=== PATIENT | male | born 1955 | race Caucasian/White ===

== ENCOUNTER 2017-10-18 15:03 | Inpatient (IN) ==
[2017-10-18] MEDS ORDERED: Dextrose 50% in Water 50 ML Vial IV.PUSH PRN (15:29)
[2017-10-18] MEDS ORDERED: Vancomycin Consult Pharmacy OTHER PRN ×2 (15:32→21:07)
--- NOTE | 2017-10-18 15:45 | P.HPIM ---
History of Present Illness Primary Care Physician: UNKNOWN Chief Complaint: Left hallux infection History of Present Illness: Mr. Schaffer is a 62 y/o male with diabetes mellitus, paroxysmal atrial fibrillation, cardiomyopathy sp AICD, and hx of colon cancer who recently underwent ostectomy/partial phalangectomy of the left hallux on 09/26/[address] Dunlap for recurring ulceration that appeared to have the appearance of a plantar wart. Pt was sent back to the hospital by Dr. Dunlap for direct admission for post-op infection of the left hallux and concern for possible osteomyelitis. Past Medical Hx: Recurring ulceration to the left hallux Paroxysmal A. fib CAD with hx of [place] Hx of colon cancer s/p partial colectomy Cardiomyopathy, EF 40% s/p AICD Hyperlipidemia Diabetes mellitus, Hgb A1C 6.9% in 02/2017 Diabetic neuropathy Obesity PAD RLS Past Surgical Hx: Ostectomy/partial phalangectomy of left hallux on 09/26/[address] Dunlap Right hemicolectomy Colonoscopy in 11/[address] Owens Appendectomy AICD Nasal septal deviation repair PTCA with previous stent placement. Family Hx: Family hx of colon cancer Sister at age 47 after Acute [place] Social Hx: Rare alcohol use Denies any tobacco or illicit drug use Inpatient Certification: I certify that the inpatient services were ordered in accordance with Medicare regulations governing the order. This includes certification that hospital inpatient services are reasonable and necessary and in the case of services not specified as inpatient-only under 42 CFR 419.22(n), that they are appropriately provided as inpatient services in accordance to with the 2-midnight benchmark under 43 CFR 412.3(e) Medications and Allergies Active Medications: Active Medications Acetaminophen (Tylenol) 650 mg PO Q4H PRN PRN Reason: fever or pain 1-10 Dextrose (D50w Vial) 50 ml IV.PUSH UNSCH PRN PRN Reason: PER HYPOGLYCEMIA PROTOCOL Glucagon (Glucagon Inj) 1 mg OTHER PRN PRN PRN Reason: for Hypoglycemia Protocol Insulin Aspart (Novolog Insulin Correctional Sugar Inj) 0 unit SQ ACHS [facility]; Protocol Ondansetron HCl (Zofran Odt) 4 mg PO Q4H PRN PRN Reason: n/v Pharmacy Profile Note (Vancomycin Consult Pharmacy) 1 each OTHER UNSCH PRN PRN Reason: Pharmacy to dose Allergies Allergy/AdvReac Type Severity Reaction Status Date / Time No Known Allergies Allergy Uncoded 04/18/15 15:42 Home Medications Medication Instructions Recorded Confirmed Type amiodarone 200 mg PO DAILY 10/18/17 10/18/17 History aspirin 81 mg PO DAILY 10/18/17 10/18/17 History atorvastatin 40 mg PO HS 10/18/17 10/18/17 History carvedilol [Coreg] 12.5 mg PO BID 10/18/17 10/18/17 History cholecalciferol (vitamin D3) 5,000 unit PO BID 10/18/17 10/18/17 History [Vitamin D3] dabigatran etexilate [Pradaxa] 150 mg PO BID 10/18/17 10/18/17 History empagliflozin [Jardiance] 10 mg PO DAILY 10/18/17 10/18/17 History furosemide [Lasix] 20 mg PO DAILY 10/18/17 10/18/17 History glipizide 5 mg PO BID 10/18/17 10/18/17 History insulin detemir U-100 [Levemir 60 unit SUB-Q BID 10/18/17 10/18/17 History FlexTouch U-100 Insuln] lisinopril 40 mg PO DAILY 10/18/17 10/18/17 History magnesium oxide 500 mg PO BID 10/18/17 10/18/17 History metformin 1,000 mg PO BID 10/18/17 10/18/17 History nitroglycerin [Nitrostat] 0.4 mg SUBLINGUAL Q5-15M PRN 10/18/17 10/18/17 History ranitidine HCl 150 mg PO BID 10/18/17 10/18/17 History ropinirole 4 mg PO HS 10/18/17 10/18/17 History trazodone 100 mg PO HS 10/18/17 10/18/17 History venlafaxine 150 mg PO DAILY 10/18/17 10/18/17 History Exam Narrative: GENERAL: NAD< AAOx3 SKIN: Warm and dry. HEENT: Atraumatic. Normocephalic. Pupils equal and round. No scleral icterus. No injection or drainage. No nasal bleeding or discharge. Mucous membranes pink and moist. NECK: Trachea midline. No JVD. CARDIO: Regular rate and rhythm. RESP: No accessory muscle use. Clear to auscultation. Breath sounds equal bilaterally. ABD: +BS, soft, non-tender, nondistended. EXT: Extremities without clubbing, cyanosis, or edema. No obvious deformities. NEURO: Awake and alert. No obvious cranial nerve deficits. Motor grossly within normal limits. Five out of 5 muscle strength in the arms and legs. Normal speech. PSYCH: Appropriate mood and affect; insight and judgment normal. Caprini VTE Risk Assessment Caprini Risk Assessment Model: Point Value = 1 Point Value = 2 Point Value = 3 Point Value = 5 Age 41-60 Minor surgery BMI > 25 kg/m2 Swollen legs Varicose veins or History of unexplained or recurrent spontaneous Oral contraceptives or hormone replacement Sepsis (< 1 month) Serious lung disease, including pneumonia (< 1 month) Abnormal pulmonary function Acute myocardial infarction Congestive heart failure (< 1 month) History of inflammatory bowel disease Medical patient at bed rest Age 61-74 Arthroscopic surgery Major open surgery (> 45 min) Laparoscopic surgery (> 45 min) Malignancy Confined to bed (> 72 hours) Immobilizing plaster cast Central venous access Age >= 75 History of VTE Family history of VTE Factor V Leiden Prothrombin [id number] Lupus anticoagulant Anticardiolipin antibodies Elevated serum homocysteine Heparin-induced thrombocytopenia Other congenital or acquired thrombophilia Stroke (< 1 month) Elective arthroplasty Hip, pelvis, or leg fracture Acute spinal cord injury (< 1 month) Prophylaxis Regimen: Total Risk Factor Score Risk Level Prophylaxis Regimen 0-1 Low Early ambulation 2 Moderate Order ONE of the following: *Sequential Compression Device (SCD) *Heparin 5000 units SQ BID 3-4 Higher Order ONE of the following medications: *Heparin 5000 units SQ TID *Enoxaparin/Lovenox 40 mg SQ daily (WT < 150 kg, CrCl > 30 mL/min) *Enoxaparin/Lovenox 30 mg SQ daily (WT < 150 kg, CrCl > 10-29 mL/min) *Enoxaparin/Lovenox 30 mg SQ BID (WT < 150 kg, CrCl > 30 mL/min) AND/OR *Sequential Compression Device (SCD) 5 or more Highest Order ONE of the following medications: *Heparin 5000 units SQ TID (Preferred with Epidurals) *Enoxaparin/Lovenox 40 mg SQ daily (WT < 150 kg, CrCl > 30 mL/min) *Enoxaparin/Lovenox 30 mg SQ daily (WT < 150 kg, CrCl > 10-29 mL/min) *Enoxaparin/Lovenox 30 mg SQ BID (WT < 150 kg, CrCl > 30 mL/min) AND *Sequential Compression Device (SCD)
--- NOTE | 2017-10-18 18:31 | P.CONPOD ---
History of Present Illness Service: Podiatry Consult date: 10/18/17 Reason for Consult: Left hallux infection Primary Care Provider: UNKNOWN Family Provider: Main Knowles MD Chief Complaint: Left hallux infection History of Present Illness: Patient is diabetic and has long history of nonhealing ulcers with consistent noncompliance. Underwent excision of wound to the area that came back as positive verruca, and bone biopsy of underlying bone that was negative for osteomyelitis. He has since been bearing weight when instructed not to, applying bandaging sometimes, but not always, and has had increasing redness and drainage to the area. Most concerning, is that he has severe peripheral neuropathy and has also been complaining of increasing pain. He was told to go to hospital for evaluation and concern for infection and possible osteomyelitis due to worsening symptoms. Review of Systems All other systems reviewed negative except as stated in HPI PMFSH - History History Provided By: Patient - Tobacco History Second Hand Smoke Exposure: No Smoking Status: Never smoker - Alcohol History How Often Do You Have a Drink Containing Alcohol: Monthly or less - Substance Use History Substance History: No History of Abuse Medications and Allergies Active Medications: Active Medications Acetaminophen (Tylenol) 650 mg PO Q4H PRN PRN Reason: fever or pain 1-10 Amiodarone HCl (Cordarone) 200 mg PO DAILY [facility] Aspirin (Aspirin Chew) 81 mg PO DAILY [facility] Atorvastatin Calcium (Lipitor) 40 mg PO HS [facility] Carvedilol (Coreg) 12.5 mg PO BID [facility] Dextrose (D50w Vial) 50 ml IV.PUSH UNSCH PRN PRN Reason: PER HYPOGLYCEMIA PROTOCOL Furosemide (Lasix) 20 mg PO DAILY [facility] Glucagon (Glucagon Inj) 1 mg OTHER PRN PRN PRN Reason: for Hypoglycemia Protocol Insulin Aspart (Novolog Insulin Correctional Sugar Inj) 0 unit SQ ACHS [facility]; Protocol Insulin Detemir (Levemir Inj) 30 unit SQ BID [facility] Lisinopril (Prinivil) 40 mg PO DAILY [facility] Non-Formulary Medication (Ranitidine Hcl [Ranitidine Hcl]) 150 mg PO BID [facility] Ondansetron HCl (Zofran Odt) 4 mg PO Q4H PRN PRN Reason: NAUSEA/VOMITING Pharmacy Profile Note (Vancomycin Consult Pharmacy) 1 each OTHER UNSCH PRN PRN Reason: Pharmacy to dose Ropinirole HCl (Requip) 4 mg PO DAILY@1800 [facility] Trazodone HCl (Desyrel) 100 mg PO HS [facility] Venlafaxine HCl (Effexor Xr) 150 mg PO DAILY [facility] Vitamin D (Vitamin D3) 5,000 unit PO BID [facility] Allergies Allergy/AdvReac Type Severity Reaction Status Date / Time No Known Allergies Allergy Uncoded 04/18/15 15:42 Home Medications Medication Instructions Recorded Confirmed Type amiodarone 200 mg PO DAILY 10/18/17 10/18/17 History aspirin 81 mg PO DAILY 10/18/17 10/18/17 History atorvastatin 40 mg PO HS 10/18/17 10/18/17 History carvedilol [Coreg] 12.5 mg PO BID 10/18/17 10/18/17 History cholecalciferol (vitamin D3) 5,000 unit PO BID 10/18/17 10/18/17 History [Vitamin D3] dabigatran etexilate [Pradaxa] 150 mg PO BID 10/18/17 10/18/17 History empagliflozin [Jardiance] 10 mg PO DAILY 10/18/17 10/18/17 History furosemide [Lasix] 20 mg PO DAILY 10/18/17 10/18/17 History glipizide 5 mg PO BID 10/18/17 10/18/17 History insulin detemir U-100 [Levemir 60 unit SUB-Q BID 10/18/17 10/18/17 History FlexTouch U-100 Insuln] lisinopril 40 mg PO DAILY 10/18/17 10/18/17 History magnesium oxide 500 mg PO BID 10/18/17 10/18/17 History metformin 1,000 mg PO BID 10/18/17 10/18/17 History nitroglycerin [Nitrostat] 0.4 mg SUBLINGUAL Q5-15M PRN 10/18/17 10/18/17 History ranitidine HCl 150 mg PO BID 10/18/17 10/18/17 History ropinirole 4 mg PO HS 10/18/17 10/18/17 History trazodone 100 mg PO HS 10/18/17 10/18/17 History venlafaxine 150 mg PO DAILY 10/18/17 10/18/17 History Physical Exam Vital signs: Vital Signs 10/18/17 18:20 Temperature 97.5 F L Pulse Rate 69 Respiratory Rate 18 Blood Pressure 134/73 Pulse Oximetry 96 Intake & Output 10/17/17 10/18/17 10/18/17 18:59 06:59 18:59 Weight 135.8 kg Other: Date of Last Bowel Movement 10/18/17 Weight On Admission 135.8 kg Narrative: Left plantar hallux interphalangeal joint area with sutures present and macerated tissue. Ulceration present with erythema and edema to hallux. Light touch sensation absent. Pulses palpable. Results - Labs CBC & Chem 7: 10/18/17 18:15 10/18/17 18:15 Assessment and Plan - Assessment (1) Cellulitis of left foot Code(s): L03.116 - Cellulitis of left lower limb Status: Acute Plan: Continue IV antibiotics Await Ceretec scan and lab results to determine if any further surgery required. Will need discharge on IV antibiotics long-term to assist with treatment plan
[2017-10-18 18:40] LABS: Hematocrit 41.1 % (39.0-51.0); Hemoglobin 13.8 gm/dL (13.0-17.0); Mean Corpuscular HGB Conc 33.6 % (32.0-36.0); Mean Corpuscular Hemoglobin 27.8 pg (27.0-34.0); Mean Corpuscular Volume 82.7 fL (80.0-100.0); Mean Platelet Volume 8.1 fL (7.0-11.0); Platelet Count 250 th/mm3 (150-450); Red Blood Count 4.97 mil/mm3 (4.50-5.90); Red Cell Distribution Width 14.8 % (11.6-17.2); White Blood Count 7.6 th/mm3 (4.0-11.0)
[2017-10-18] MEDS: Insulin NovoLOG Aspart Correctional Sugar Inj SQ SCH ×2 (18:55→22:05)
[2017-10-18 18:57] LABS: Carbon Dioxide 25.5 meq/L (21.0-32.0); Erythrocyte Sedimentation Rate 37 mm/hr (0-20); Potassium 4.1 meq/L (3.5-5.1)
[2017-10-18] MEDS: Carvedilol 12.5 MG Tablet PO SCH (20:31)
[2017-10-18] MEDS: Famotidine 20 MG Tablet PO SCH (20:31)
[2017-10-18] MEDS: Acetaminophen 325 MG Tablet PO PRN (20:32)
[2017-10-18] MEDS ORDERED: Vancomycin Inj 1,000 MG in Sodium Chlor 0.9% Inj 250 ML IV.SIG ONE (21:07)
--- NOTE | 2017-10-18 21:10 | P.HPIM ---
History of Present Illness Primary Care Physician: UNKNOWN Chief Complaint: Left hallux infection History of Present Illness: Mr. Schaffer is a 62 y/o male with diabetes mellitus, paroxysmal atrial fibrillation, cardiomyopathy sp AICD, and hx of colon cancer who recently underwent ostectomy/partial phalangectomy of the left hallux on 09/26/[address] Dunlap for recurring ulceration that appeared to have the appearance of a plantar wart. Pt was sent back to the hospital by Dr. Dunlap for direct admission for post-op infection of the left hallux and concern for possible osteomyelitis. Past Medical Hx: Recurring ulceration to the left hallux Paroxysmal A. fib CAD with hx of [place] Hx of colon cancer s/p partial colectomy Cardiomyopathy, EF 40% s/p AICD Hyperlipidemia Diabetes mellitus, Hgb A1C 6.9% in 02/2017 Diabetic neuropathy Obesity PAD RLS Past Surgical Hx: Ostectomy/partial phalangectomy of left hallux on 09/26/[address] Dunlap Right hemicolectomy Colonoscopy in 11/[address] Owens Appendectomy AICD Nasal septal deviation repair PTCA with previous stent placement. Family Hx: Family hx of colon cancer Sister at age 47 after Acute [place] Social Hx: Rare alcohol use Denies any tobacco or illicit drug use - Diagnosis (1) Cellulitis of left foot Inpatient Certification: I certify that the inpatient services were ordered in accordance with Medicare regulations governing the order. This includes certification that hospital inpatient services are reasonable and necessary and in the case of services not specified as inpatient-only under 42 CFR 419.22(n), that they are appropriately provided as inpatient services in accordance to with the 2-midnight benchmark under 43 CFR 412.3(e) Estimated Total Length of Stay (Days): 5 Plans for Post Hospital Care: Home [facility] - History History Provided By: Patient - Tobacco History Second Hand Smoke Exposure: No Smoking Status: Never smoker - Alcohol History How Often Do You Have a Drink Containing Alcohol: Monthly or less - Substance Use History Substance History: No History of Abuse Medications and Allergies Active Medications: Active Medications Acetaminophen (Tylenol) 650 mg PO Q4H PRN PRN Reason: fever or pain 1-10 Last Admin: 10/18/17 20:32 Dose: 650 mg Amiodarone HCl (Cordarone) 200 mg PO DAILY [facility] Aspirin (Aspirin Chew) 81 mg PO DAILY [facility] Atorvastatin Calcium (Lipitor) 40 mg PO HS [facility] Last Admin: 10/18/17 20:32 Dose: 40 mg Carvedilol (Coreg) 12.5 mg PO BID [facility] Last Admin: 10/18/17 20:31 Dose: 12.5 mg Dextrose (D50w Vial) 50 ml IV.PUSH UNSCH PRN PRN Reason: PER HYPOGLYCEMIA PROTOCOL Famotidine (Pepcid) 20 mg PO BID [facility] Last Admin: 10/18/17 20:31 Dose: 20 mg Furosemide (Lasix) 20 mg PO DAILY [facility] Glucagon (Glucagon Inj) 1 mg OTHER PRN PRN PRN Reason: for Hypoglycemia Protocol Vancomycin HCl 1,000 mg/ (Sodium Chloride) 250 mls @ 250 mls/hr IV.SIG ONCE ONE Stop: 10/18/17 22:06 Insulin Aspart (Novolog Insulin Correctional Sugar Inj) 0 unit SQ ACHS [facility]; Protocol Last Admin: 10/18/17 18:55 Dose: 2 unit Insulin Detemir (Levemir Inj) 30 unit SQ BID [facility] Lisinopril (Prinivil) 40 mg PO DAILY [facility] Ondansetron HCl (Zofran Odt) 4 mg PO Q4H PRN PRN Reason: NAUSEA/VOMITING Pharmacy Profile Note (Vancomycin Consult Pharmacy) 1 each OTHER UNSCH PRN PRN Reason: Pharmacy to dose Pharmacy Profile Note (Vancomycin Consult Pharmacy) 1 each OTHER UNSCH PRN PRN Reason: Pharmacy to dose Ropinirole HCl (Requip) 4 mg PO DAILY@1800 [facility] Last Admin: 10/18/17 19:15 Dose: 4 mg Trazodone HCl (Desyrel) 100 mg PO [facility] Venlafaxine HCl (Effexor Xr) 150 mg PO DAILY [facility] Vitamin D (Vitamin D3) 5,000 unit PO BID [facility] Last Admin: 10/18/17 20:31 Dose: 5,000 unit Allergies Allergy/AdvReac Type Severity Reaction Status Date / Time No Known Allergies Allergy Uncoded 04/18/15 15:42 Home Medications Medication Instructions Recorded Confirmed Type amiodarone 200 mg PO DAILY 10/18/17 10/18/17 History aspirin 81 mg PO DAILY 10/18/17 10/18/17 History atorvastatin 40 mg PO HS 10/18/17 10/18/17 History carvedilol [Coreg] 12.5 mg PO BID 10/18/17 10/18/17 History cholecalciferol (vitamin D3) 5,000 unit PO BID 10/18/17 10/18/17 History [Vitamin D3] dabigatran etexilate [Pradaxa] 150 mg PO BID 10/18/17 10/18/17 History empagliflozin [Jardiance] 10 mg PO DAILY 10/18/17 10/18/17 History furosemide [Lasix] 20 mg PO DAILY 10/18/17 10/18/17 History glipizide 5 mg PO BID 10/18/17 10/18/17 History insulin detemir U-100 [Levemir 60 unit SUB-Q BID 10/18/17 10/18/17 History FlexTouch U-100 Insuln] lisinopril 40 mg PO DAILY 10/18/17 10/18/17 History magnesium oxide 500 mg PO BID 10/18/17 10/18/17 History metformin 1,000 mg PO BID 10/18/17 10/18/17 History nitroglycerin [Nitrostat] 0.4 mg SUBLINGUAL Q5-15M PRN 10/18/17 10/18/17 History ranitidine HCl 150 mg PO BID 10/18/17 10/18/17 History ropinirole 4 mg PO HS 10/18/17 10/18/17 History trazodone 100 mg PO HS 10/18/17 10/18/17 History Exam Vital signs: Vital Signs 10/18/17 18:20 10/18/17 20:00 Temperature 97.5 F L 98.6 F Pulse Rate 69 67 Respiratory Rate 18 17 Blood Pressure 134/73 138/76 Pulse Oximetry 96 95 Intake & Output 10/18/17 10/18/17 10/19/17 06:59 18:59 06:59 Weight 135.8 kg Other: Date of Last Bowel Movement 10/18/17 Weight On Admission 135.8 kg heart reg lungc ta abd s/nt ext left great toe redness/open wound. no drainage Results - Labs CBC & Chem 7: 10/23/17 05:38 10/23/17 05:38 Labs: Short CBC 10/18/17 Range/Units 18:15 WBC 7.6 (4.0-11.0) th/mm3 Hgb 13.8 (13.0-17.0) gm/dL Hct 41.1 (39.0-51.0) % Plt Count 250 (150-450) th/mm3 BMP 10/18/17 18:15 Sodium 139 Potassium 4.1 Chloride 103 Carbon Dioxide 25.5 BUN 13 Creatinine 1.14 Calcium 9.0 Caprini VTE Risk Assessment Caprini VTE Risk Assessment: Moderate/High Risk (score >= 2) Caprini Risk Assessment Model: Point Value = 1 Point Value = 2 Point Value = 3 Point Value = 5 Age 41-60 Minor surgery BMI > 25 kg/m2 Swollen legs Varicose veins or History of unexplained or recurrent spontaneous Oral contraceptives or hormone replacement Sepsis (< 1 month) Serious lung disease, including pneumonia (< 1 month) Abnormal pulmonary function Acute myocardial infarction Congestive heart failure (< 1 month) History of inflammatory bowel disease Medical patient at bed rest Age 61-74 Arthroscopic surgery Major open surgery (> 45 min) Laparoscopic surgery (> 45 min) Malignancy Confined to bed (> 72 hours) Immobilizing plaster cast Central venous access Age >= 75 History of VTE Family history of VTE Factor V Leiden Prothrombin [id number] Lupus anticoagulant Anticardiolipin antibodies Elevated serum homocysteine Heparin-induced thrombocytopenia Other congenital or acquired thrombophilia Stroke (< 1 month) Elective arthroplasty Hip, pelvis, or leg fracture Acute spinal cord injury (< 1 month) Prophylaxis Regimen: Total Risk Factor Score Risk Level Prophylaxis Regimen 0-1 Low Early ambulation 2 Moderate Order ONE of the following: *Sequential Compression Device (SCD) *Heparin 5000 units SQ BID 3-4 Higher Order ONE of the following medications: *Heparin 5000 units SQ TID *Enoxaparin/Lovenox 40 mg SQ daily (WT < 150 kg, CrCl > 30 mL/min) *Enoxaparin/Lovenox 30 mg SQ daily (WT < 150 kg, CrCl > 10-29 mL/min) *Enoxaparin/Lovenox 30 mg SQ BID (WT < 150 kg, CrCl > 30 mL/min) AND/OR *Sequential Compression Device (SCD) 5 or more Highest Order ONE of the following medications: *Heparin 5000 units SQ TID (Preferred with Epidurals) *Enoxaparin/Lovenox 40 mg SQ daily (WT < 150 kg, CrCl > 30 mL/min) *Enoxaparin/Lovenox 30 mg SQ daily (WT < 150 kg, CrCl > 10-29 mL/min) *Enoxaparin/Lovenox 30 mg SQ BID (WT < 150 kg, CrCl > 30 mL/min) AND *Sequential Compression Device (SCD) Assessment and Plan - Assessment (1) Cellulitis of left foot Code(s): L03.116 - Cellulitis of left lower limb Status: Acute Plan: Left hallux cellulitis s/p ostectomy/partial phalangectomy of the left hallux on 09/26/17 - Pt is a 62 y/o male with diabetes mellitus, paroxysmal atrial fibrillation, cardiomyopathy sp AICD, and hx of colon cancer who recently underwent ostectomy/ partial phalangectomy of the left hallux on 09/26/[address] Dunlap for recurring ulceration that appeared to have the appearance of a plantar wart. Previous surgical cx's noted from September, growing GBS and MSSA - Pt was sent back to the hospital by Dr. Dunlap for direct admission for post -op infection of the left hallux and concern for possible osteomyelitis. The pt had reportedly been noncompliant with non-weight bearing status - Cont. Vancomycin with pharmacy consult at admission - Dr. Dunlap is following. - ceretec scan to evaluate for osteo - further wound cultures per podiatry. Diabetes mellitus - Home [facility] on hold - Levemir dose decreased to 30units BID - NovoLog SSI - Accu checks Paroxysmal A. fib Cardiomyopathy s/p AICD - Home meds resumed including Pradaxa . H&P: Quality - VTE Deep Vein Thrombosis/Pulmonary Embolism Present on Admission: No
[2017-10-18] MEDS: Insulin Detemir Inj 1,000 UNIT/10 ML Vial SQ SCH (22:05)
[2017-10-18] MEDS: traZODone 100 MG Tablet PO SCH (22:06)
--- NOTE | 2017-10-18 22:28 | XR ---
EXAM DATE: 10/18/2017 10:23 PM EDT AGE/SEX: 62 years / Male INDICATIONS: Possible hallux infection. Surgery on September 26. CLINICAL DATA: This is the patient's initial encounter. Patient reports that signs and symptoms have been present for 3 weeks and indicates a pain score of 3/10. MEDICAL/SURGICAL HISTORY: . Myocardial infarction. Diabetes mellitus type 2. Hypertension. . Pacemaker. Angioplasty. Large bowel resection. Left great toe. COMPARISON: No prior exams available for comparison. FINDINGS: There is soft tissue swelling involving the left great toe. There is a possible avulsion fracture or soft tissue calcification adjacent to the medial base of the left first distal phalanx. Moderate oste oarthritis is noted involving the first metatarsophalangeal and interphalangeal joints. Plantar and A chilles calcaneal spurs are noted. CONCLUSION: 1. Possible avulsion fracture or soft tissue calcification adjacent to the medial base of the left f irst distal phalanx. 2. Soft tissue swelling involving the left great toe. 3. 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 4. Plantar and Achilles calcaneus spurs. Electronically signed by: Wil Jones MD 10/18/2017 10:27 PM EDT
[2017-10-18] MEDS: Vancomycin Inj 1,750 MG in Sodium Chlor 0.9% Inj 500 ML IV.SIG SCH (22:31)
[2017-10-19] MEDS: Insulin NovoLOG Aspart Correctional Sugar Inj SQ SCH ×4 (08:37→20:50)
[2017-10-19] MEDS: Carvedilol 12.5 MG Tablet PO SCH ×2 (08:38→20:53)
[2017-10-19] MEDS: Famotidine 20 MG Tablet PO SCH ×2 (08:38→20:48)
[2017-10-19] MEDS: Furosemide 20 MG Tablet PO SCH (08:38)
[2017-10-19] MEDS: Amiodarone 200 MG Tablet PO SCH (08:38)
[2017-10-19] MEDS: Venlafaxine XR 75 MG Capsule PO SCH (08:38)
[2017-10-19] MEDS: Lisinopril 20 MG Tablet PO SCH (08:38)
[2017-10-19] MEDS: Insulin Detemir Inj 1,000 UNIT/10 ML Vial SQ SCH ×2 (09:07→20:50)
[2017-10-19] MEDS: Vancomycin Inj 1,750 MG in Sodium Chlor 0.9% Inj 500 ML IV.SIG SCH ×2 (09:39→23:04)
--- NOTE | 2017-10-19 09:47 | P.PNIM ---
Subjective Interval history: No new complaints this morning Afebrile No complaints of pain Physical Exam Vital signs: Vital Signs 10/18/17 18:20 10/18/17 20:00 10/18/17 23:46 Temperature 97.5 F L 98.6 F 98.4 F Pulse Rate 69 67 62 Respiratory Rate 18 17 17 Blood Pressure 134/73 138/76 116/62 Pulse Oximetry 96 95 93 L 10/19/17 04:00 10/19/17 08:00 Temperature 98.2 F 97.6 F Pulse Rate 62 61 Respiratory Rate 17 12 Blood Pressure 130/78 147/81 H Pulse Oximetry 93 L 90 L Intake & Output 10/18/17 10/19/17 10/19/17 18:59 06:59 18:59 Intake Total 1517.5 / 1517.5 Balance 1517.5 / 1517.5 Weight 135.8 kg Intake: IV 517.5 / 517.5 Vancomycin Inj 1,750 MG In NS 517.5 / 517.5 Inj 500 ML @ 250 mls/hr IV.SIG Q12H [facility] Rx#:[id number] Oral 1000 / 1000 Other: # Voids 3 Date of Last Bowel Movement 10/18/17 10/18/17 Weight On Admission 135.8 kg Narrative: General: NAD, AAOx3 Chest: CTA Cardiac: Regular Abd: +BS, soft ND/NT Ext: Left hallux interphalangeal joint area with sutures present. Ulceration present with erythema and edema to hallux. No drainage. Results - Labs CBC & Chem 7: 10/18/17 18:15 10/18/17 18:15 Laboratory Results - last 24 hr 10/18/17 10/18/17 10/18/17 18:15 18:15 18:33 WBC 7.6 RBC 4.97 Hgb 13.8 Hct 41.1 MCV 82.7 MCH 27.8 MCHC 33.6 RDW 14.8 Plt Count 250 MPV 8.1 ESR 37 H Sodium 139 Potassium 4.1 Chloride 103 Carbon Dioxide 25.5 Anion Gap 11 BUN 13 Creatinine 1.14 Estimated GFR 66 L POC Glucose 181 H Random Glucose 147 H Calcium 9.0 10/18/17 10/19/17 21:33 08:36 WBC RBC Hgb Hct MCV MCH MCHC RDW Plt Count MPV ESR Sodium Potassium Chloride Carbon Dioxide Anion Gap BUN Creatinine Estimated GFR POC Glucose 121 H 149 H Random Glucose Calcium - Imaging Impressions Foot X-Ray 10/18/17 00:00 CONCLUSION: 1. Possible avulsion fracture or soft tissue calcification adjacent to the medial base of the left first distal phalanx. 2. Soft tissue swelling involving the left great toe. 3. 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 4. Plantar and Achilles calcaneus spurs. Assessment and Plan - Assessment (1) Cellulitis of left foot Code(s): L03.116 - Cellulitis of left lower limb Status: Acute Plan: Left hallux cellulitis s/p ostectomy/partial phalangectomy of the left hallux on 09/26/17 - Pt is a 62 y/o male with diabetes mellitus, paroxysmal atrial fibrillation, cardiomyopathy sp AICD, and hx of colon cancer who recently underwent ostectomy/ partial phalangectomy of the left hallux on 09/26/[address] Dunlap for recurring ulceration that appeared to have the appearance of a plantar wart. - Pt was sent back to the hospital by Dr. Dunlap for direct admission for post -op infection of the left hallux and concern for possible osteomyelitis. The pt had reportedly been noncompliant with non-weight bearing status - pt was started on Vancomycin with pharmacy consult at admission - Dr. Dunlap is following. - Ceretex scan ordered for today - Supportive care Diabetes mellitus - Home OHA on hold - Levemir dose decreased to 30units BID - NovoLog SSI - Accu checks Paroxysmal A. fib Cardiomyopathy s/p AICD - Home meds resumed except Pradaxa on hold until case can be discussed with Podiatry today The exam, history, and the medical decision-making described in the above note were completed with the assistance of the mid-level provider. I reviewed and agree with the findings presented. I attest that I had a [id number] encounter with the patient on the same day, and personally performed and documented my assessment and findings in the medical record. ceretec scan. cont abx. podiatry following. will decide on surgery...plan for home iv abx. previous cx's noted from September..gbs and mssa.
--- NOTE | 2017-10-19 20:41 | P.PNPOD ---
Subjective Interval history: Infection left hallux, s/p exostectomy with biopsy of chronic lesion Physical Exam Vital signs: Vital Signs 10/18/17 23:46 10/19/17 04:00 10/19/17 08:00 Temperature 98.4 F 98.2 F 97.6 F Pulse Rate 62 62 61 Respiratory Rate 17 17 12 Blood Pressure 116/62 130/78 147/81 H Pulse Oximetry 93 L 93 L 90 L 10/19/17 13:35 10/19/17 17:28 10/19/17 19:45 Temperature 98.1 F 97.5 F L 98.5 F Pulse Rate 57 L 59 L 60 Respiratory Rate 17 19 20 Blood Pressure 133/81 155/84 H 143/78 H Pulse Oximetry 97 97 96 Intake & Output 10/19/17 10/19/17 10/20/17 06:59 18:59 06:59 Intake Total 1517.5 / 1517.5 1999 Balance 1517.5 / 1517.5 1999 Intake: IV 517.5 / 517.5 1000 / 1000 Vancomycin Inj 1,750 MG In NS 517.5 / 517.5 1000 / 1000 Inj 500 ML @ 250 mls/hr IV.SIG Q12H [facility] Rx#:[id number] Oral 1000 / 1000 1000 / 1000 Other: # Voids 3 Date of Last Bowel Movement 10/18/17 Medications and Allergies Active Medications: Active Medications Acetaminophen (Tylenol) 650 mg PO Q4H PRN PRN Reason: fever or pain 1-10 Last Admin: 10/18/17 20:32 Dose: 650 mg Amiodarone HCl (Cordarone) 200 mg PO DAILY [facility] Last Admin: 10/19/17 08:38 Dose: 200 mg Aspirin (Aspirin Chew) 81 mg PO DAILY [facility] Last Admin: 10/19/17 08:38 Dose: 81 mg Atorvastatin Calcium (Lipitor) 40 mg PO HS [facility] Last Admin: 10/18/17 20:32 Dose: 40 mg Carvedilol (Coreg) 12.5 mg PO BID [facility] Last Admin: 10/19/17 08:38 Dose: 12.5 mg Dabigatran (Pradaxa) 150 mg PO BID [facility] Last Admin: 10/19/17 14:28 Dose: 150 mg Dextrose (D50w Vial) 50 ml IV.PUSH UNSCH PRN PRN Reason: PER HYPOGLYCEMIA PROTOCOL Famotidine (Pepcid) 20 mg PO BID [facility] Last Admin: 10/19/17 08:38 Dose: 20 mg Furosemide (Lasix) 20 mg PO DAILY [facility] Last Admin: 10/19/17 08:38 Dose: 20 mg Glucagon (Glucagon Inj) 1 mg OTHER PRN PRN PRN Reason: for Hypoglycemia Protocol Vancomycin HCl 1,750 mg/ (Sodium Chloride) 517.5 mls @ 250 mls/hr IV.SIG Q12H [facility] Last Infusion: 10/19/17 12:55 Dose: Infused Insulin Aspart (Novolog Insulin Correctional Sugar Inj) 0 unit SQ ACHS [facility]; Protocol Last Admin: 10/19/17 18:10 Dose: 4 unit Insulin Detemir (Levemir Inj) 30 unit SQ BID [facility] Last Admin: 10/19/17 09:07 Dose: Not Given Lisinopril (Prinivil) 40 mg PO DAILY [facility] Last Admin: 10/19/17 08:38 Dose: 40 mg Miscellaneous Information ([facility] Ordered Lab Info) 0 each OTHER ONCE ONE Stop: 10/20/17 09:46 Ondansetron HCl (Zofran Odt) 4 mg PO Q4H PRN PRN Reason: NAUSEA/VOMITING Pharmacy Profile Note (Vancomycin Consult Pharmacy) 1 each OTHER UNSCH PRN PRN Reason: Pharmacy to dose Pharmacy Profile Note (Vancomycin Consult Pharmacy) 1 each OTHER UNSCH PRN PRN Reason: Pharmacy to dose Ropinirole HCl (Requip) 4 mg PO DAILY@1800 [facility] Last Admin: 10/19/17 17:34 Dose: 4 mg Trazodone HCl (Desyrel) 100 mg PO [facility] Last Admin: 10/18/17 22:06 Dose: 100 mg Venlafaxine HCl (Effexor Xr) 150 mg PO DAILY [facility] Last Admin: 10/19/17 08:38 Dose: 150 mg Vitamin D (Vitamin D3) 5,000 unit PO BID [facility] Last Admin: 10/19/17 09:39 Dose: 5,000 unit Allergies Allergy/AdvReac Type Severity Reaction Status Date / Time No Known Allergies Allergy Uncoded 04/18/15 15:42 Home Medications Medication Instructions Recorded Confirmed Type amiodarone 200 mg PO DAILY 10/18/17 10/18/17 History aspirin 81 mg PO DAILY 10/18/17 10/18/17 History atorvastatin 40 mg PO HS 10/18/17 10/18/17 History carvedilol [Coreg] 12.5 mg PO BID 10/18/17 10/18/17 History cholecalciferol (vitamin D3) 5,000 unit PO BID 10/18/17 10/18/17 History [Vitamin D3] dabigatran etexilate [Pradaxa] 150 mg PO BID 10/18/17 10/18/17 History empagliflozin [Jardiance] 10 mg PO DAILY 10/18/17 10/18/17 History furosemide [Lasix] 20 mg PO DAILY 10/18/17 10/18/17 History glipizide 5 mg PO BID 10/18/17 10/18/17 History insulin detemir U-100 [Levemir 60 unit SUB-Q BID 10/18/17 10/18/17 History FlexTouch U-100 Insuln] lisinopril 40 mg PO DAILY 10/18/17 10/18/17 History magnesium oxide 500 mg PO BID 10/18/17 10/18/17 History metformin 1,000 mg PO BID 10/18/17 10/18/17 History nitroglycerin [Nitrostat] 0.4 mg SUBLINGUAL Q5-15M PRN 10/18/17 10/18/17 History ranitidine HCl 150 mg PO BID 10/18/17 10/18/17 History ropinirole 4 mg PO HS 10/18/17 10/18/17 History trazodone 100 mg PO HS 10/18/17 10/18/17 History venlafaxine 150 mg PO DAILY 10/18/17 10/18/17 History Results - Labs CBC & Chem 7: 10/18/17 18:15 10/18/17 18:15 Laboratory Results - last 24 hr 10/18/17 10/19/17 10/19/17 21:33 08:36 13:25 POC Glucose 121 H 149 H 185 H 10/19/17 10/19/17 17:33 20:23 POC Glucose 205 H 185 H - Imaging Impressions Foot X-Ray 10/18/17 00:00 CONCLUSION: 1. Possible avulsion fracture or soft tissue calcification adjacent to the medial base of the left first distal phalanx. 2. Soft tissue swelling involving the left great toe. 3. 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 4. Plantar and Achilles calcaneus spurs. Assessment and Plan - Assessment (1) Cellulitis of left foot Code(s): L03.116 - Cellulitis of left lower limb Status: Acute Plan: Continue IV antibiotics Await Ceretec scan and lab results to determine if any further surgery required. Results should be in by mid-day tomorrow Will need discharge on IV antibiotics long-term to assist with treatment plan
[2017-10-19] MEDS: traZODone 100 MG Tablet PO SCH (20:48)
[2017-10-20] MEDS: Acetaminophen 325 MG Tablet PO PRN ×2 (00:43→21:04)
[2017-10-20 07:26] LABS: Baso # (Auto) 0.1 th/mm3 (0.0-0.2); Eos # (Auto) 1.3 th/mm3 (0.0-0.4); Eos % (Auto) 21.1 % (0.0-4.0); Hematocrit 39.4 % (39.0-51.0); Hemoglobin 13.1 gm/dL (13.0-17.0); Lymph # (Auto) 1.6 th/mm3 (1.0-4.8); Lymph % (Auto) 25.9 % (9.0-44.0); Mean Corpuscular HGB Conc 33.2 % (32.0-36.0); Mean Corpuscular Hemoglobin 27.6 pg (27.0-34.0); Mean Corpuscular Volume 83.3 fL (80.0-100.0); Mean Platelet Volume 8.4 fL (7.0-11.0); Mono # (Auto) 0.7 th/mm3 (0.0-0.9); Mono % (Auto) 11.9 % (0.0-8.0); Neut # (Auto) 2.5 th/mm3 (1.8-7.7); Neut % (Auto) 40.1 % (16.0-70.0); Platelet Count 212 th/mm3 (150-450); Red Blood Count 4.73 mil/mm3 (4.50-5.90); Red Cell Distribution Width 15.1 % (11.6-17.2); White Blood Count 6.2 th/mm3 (4.0-11.0)
[2017-10-20] MEDS: Insulin NovoLOG Aspart Correctional Sugar Inj SQ SCH ×4 (09:19→21:07)
[2017-10-20] MEDS: Lisinopril 20 MG Tablet PO SCH (09:20)
[2017-10-20] MEDS: Amiodarone 200 MG Tablet PO SCH (09:20)
[2017-10-20] MEDS: Furosemide 20 MG Tablet PO SCH (09:20)
[2017-10-20] MEDS: Venlafaxine XR 75 MG Capsule PO SCH (09:20)
[2017-10-20] MEDS: Carvedilol 12.5 MG Tablet PO SCH ×2 (09:20→21:05)
[2017-10-20] MEDS: Famotidine 20 MG Tablet PO SCH ×2 (09:20→21:05)
[2017-10-20] MEDS: Insulin Detemir Inj 1,000 UNIT/10 ML Vial SQ SCH ×2 (09:21→21:11)
[2017-10-20] MEDS ORDERED: Pharmacy Ordered Lab Info OTHER ONE (09:45)
--- NOTE | 2017-10-20 09:55 | P.PNIM ---
Subjective Interval history: Pt feeling well today, no new complaints Awaiting second portion of his Ceretex scan Physical Exam Vital signs: Vital Signs 10/19/17 13:35 10/19/17 17:28 10/19/17 19:45 Temperature 98.1 F 97.5 F L 98.5 F Pulse Rate 57 L 59 L 60 Respiratory Rate 17 19 20 Blood Pressure 133/81 155/84 H 143/78 H Pulse Oximetry 97 97 96 10/19/17 22:04 10/20/17 00:00 Temperature 97.6 F 97.9 F Pulse Rate 60 61 Respiratory Rate 20 20 Blood Pressure 162/79 H 120/68 Pulse Oximetry 96 94 L Intake & Output 10/19/17 10/20/17 10/20/17 18:59 06:59 18:59 Intake Total 1999 757.5 / 757.5 Balance 1999 757.5 / 757.5 Weight 135.8 kg Intake: IV 1000 / 1000 517.5 / 517.5 Vancomycin Inj 1,750 MG In NS 1000 / 1000 517.5 / 517.5 Inj 500 ML @ 250 mls/hr IV.SIG Q12H [facility] Rx#:[id number] Oral 1000 / 1000 240 / 240 Other: # Voids 2 Date of Last Bowel Movement 10/19/17 Narrative: General: NAD, AAOx3 Chest: CTA Cardiac: Regular Abd: +BS, soft ND/NT Ext: Left hallux interphalangeal joint area with sutures present. Ulceration present with erythema and edema to hallux. No drainage. Results - Labs CBC & Chem 7: 10/20/17 06:15 10/20/17 11:02 Laboratory Results - last 24 hr 10/19/17 10/19/17 10/19/17 13:25 17:33 20:23 WBC RBC Hgb Hct MCV MCH MCHC RDW Plt Count MPV Neut % (Auto) Lymph % (Auto) [place] % (Auto) Eos % (Auto) Baso % (Auto) Neut # (Auto) Lymph # (Auto) [place] # (Auto) Eos # (Auto) Baso # (Auto) WBC Differential Differential Comment POC Glucose 185 H 205 H 185 H 10/20/17 10/20/17 06:15 07:56 WBC 6.2 RBC 4.73 Hgb 13.1 Hct 39.4 MCV 83.3 MCH 27.6 MCHC 33.2 RDW 15.1 Plt Count 212 MPV 8.4 Neut % (Auto) 40.1 Lymph % (Auto) 25.9 [place] % (Auto) 11.9 H Eos % (Auto) 21.1 H Baso % (Auto) 1.0 Neut # (Auto) 2.5 Lymph # (Auto) 1.6 [place] # (Auto) 0.7 Eos # (Auto) 1.3 H Baso # (Auto) 0.1 WBC Differential . Differential Comment Auto diff final POC Glucose 165 H Assessment and Plan - Assessment (1) Cellulitis of left foot Code(s): L03.116 - Cellulitis of left lower limb Status: Acute Plan: Left hallux cellulitis s/p ostectomy/partial phalangectomy of the left hallux on 09/26/17 - Pt is a 62 y/o male with diabetes mellitus, paroxysmal atrial fibrillation, cardiomyopathy sp AICD, and hx of colon cancer who recently underwent ostectomy/ partial phalangectomy of the left hallux on 09/26/[address] Dunlap for recurring ulceration that appeared to have the appearance of a plantar wart. Previous surgical cx's noted from September, growing GBS and MSSA - Pt was sent back to the hospital by Dr. Dunlap for direct admission for post -op infection of the left hallux and concern for possible osteomyelitis. The pt had reportedly been noncompliant with non-weight bearing status - pt was started on Vancomycin with pharmacy consult at admission - Dr. Dunlap is following. - The second portion of the Ceretex scan to be completed today. Dr. Dunlap to review and decide about surgical intervention. - Supportive care Diabetes mellitus - Home OHA on hold - Levemir dose decreased to 30units BID - NovoLog SSI - Accu checks Paroxysmal A. fib Cardiomyopathy s/p AICD - Home meds resumed including Pradaxa The exam, history, and the medical decision-making described in the above note were completed with the assistance of the mid-level provider. I reviewed and agree with the findings presented. I attest that I had a [id number] encounter with the patient on the same day, and personally performed and documented my assessment and findings in the medical record. ceretec scan concerning for very small area of osteo of left great toe. await podiatry plan cont abx to cover for gbs and mssa which were recently cx'd. cont current meds.
--- NOTE | 2017-10-20 11:05 | NM ---
EXAM DATE: 10/20/2017 10:53 AM EDT AGE/SEX: 62 years / Male INDICATIONS: Left great toe osteomyelitis. CLINICAL DATA: This is the patient's subsequent encounter. Patient reports that signs and symptoms h ave been present for 3 weeks and indicates a pain score of 0/10. Location: , Laterality: MEDICAL/SURGICAL HISTORY: Carcinoma, colon. Diabetes mellitus type II. Leukemia. Pacemaker. O stectomy/partial phalangectomy of the left hallux on 09/26/17. COMPARISON: No prior exams available for comparison. DOSE: 21.2 mCi Tc99m Ceretec labeled white blood cells IV IMAGING TIMES: 30 min , 3 hrs , 24 hrs IMAGING: SPECT/CT imaging with fusion was performed. RADIATION DOSE: 5.53 CTDIvol(mGy) Multiple day study TECHNIQUE: Following the in vitro labeling of autologous white cells and reinjection, whole body sca n was performed at the specified times. SPECT imaging was performed at the specified time in sagittal , axial and coronal planes. Attenuation correction was performed with the computed tomography and ana lilia th the attenuation correction and non-attenuation corrected data sets were reviewed. FINDINGS: There does appear to be some increased Ceretec accumulation along the very medial margin of the first distal phalangeal bone on the left. No soft tissue ulcerations identified. There is no active ostial lysis. CONCLUSION: 1. The only questionable areas of Ceretec accumulation involves the very medial margin of the first distal phalangeal bone on the left. It only involves the edge of the bone and not the marrow. Electronically signed by: Main Pandey MD 10/20/2017 11:03 AM EDT
[2017-10-20] MEDS: Vancomycin Inj 1,750 MG in Sodium Chlor 0.9% Inj 500 ML IV.SIG SCH ×2 (11:19→21:04)
[2017-10-20 11:52] LABS: Calcium 8.7 mg/dL (8.5-10.1); Carbon Dioxide 28.9 meq/L (21.0-32.0); Potassium 4.2 meq/L (3.5-5.1)
[2017-10-20 11:54] LABS: Vancomycin,Trough 12.6 mcg/mL (5.0-10.0)
--- NOTE | 2017-10-20 15:14 | P.PNPOD ---
Subjective Interval history: left hallux infection Physical Exam Vital signs: Vital Signs 10/19/17 17:28 10/19/17 19:45 10/19/17 22:04 Temperature 97.5 F L 98.5 F 97.6 F Pulse Rate 59 L 60 60 Respiratory Rate 19 20 20 Blood Pressure 155/84 H 143/78 H 162/79 H Pulse Oximetry 97 96 96 10/20/17 00:00 10/20/17 08:00 10/20/17 12:00 Temperature 97.9 F 98.0 F 98.2 F Pulse Rate 61 60 61 Respiratory Rate 20 18 18 Blood Pressure 120/68 124/69 124/67 Pulse Oximetry 94 L 94 L 94 L Intake & Output 10/19/17 10/20/17 10/20/17 18:59 06:59 18:59 Intake Total 1999 757.5 / 757.5 517.5 / 517.5 Balance 1999 757.5 / 757.5 517.5 / 517.5 Weight 135.8 kg Intake: IV 1000 / 1000 517.5 / 517.5 517.5 / 517.5 Vancomycin Inj 1,750 MG In NS 1000 / 1000 517.5 / 517.5 517.5 / 517.5 Inj 500 ML @ 250 mls/hr IV.SIG Q12H [facility] Rx#:[id number] Oral 1000 / 1000 240 / 240 Other: # Voids 2 Date of Last Bowel Movement 10/19/17 Narrative: left plantar hallux with two retention sutures intact granular base to wound with minimal fibrotic tissue. reduced erythema to L hallux Medications and Allergies Active Medications: Active Medications Acetaminophen (Tylenol) 650 mg PO Q4H PRN PRN Reason: fever or pain 1-10 Last Admin: 10/20/17 00:43 Dose: 650 mg Amiodarone HCl (Cordarone) 200 mg PO DAILY [facility] Last Admin: 10/20/17 09:20 Dose: 200 mg Aspirin (Aspirin Chew) 81 mg PO DAILY [facility] Last Admin: 10/20/17 09:20 Dose: 81 mg Atorvastatin Calcium (Lipitor) 40 mg PO HS [facility] Last Admin: 10/19/17 20:48 Dose: 40 mg Carvedilol (Coreg) 12.5 mg PO BID [facility] Last Admin: 10/20/17 09:20 Dose: 12.5 mg Dabigatran (Pradaxa) 150 mg PO BID [facility] Last Admin: 10/20/17 09:20 Dose: 150 mg Dextrose (D50w Vial) 50 ml IV.PUSH UNSCH PRN PRN Reason: PER HYPOGLYCEMIA PROTOCOL Famotidine (Pepcid) 20 mg PO BID [facility] Last Admin: 10/20/17 09:20 Dose: 20 mg Furosemide (Lasix) 20 mg PO DAILY [facility] Last Admin: 10/20/17 09:20 Dose: 20 mg Glucagon (Glucagon Inj) 1 mg OTHER PRN PRN PRN Reason: for Hypoglycemia Protocol Vancomycin HCl 1,750 mg/ (Sodium Chloride) 517.5 mls @ 250 mls/hr IV.SIG Q12H [facility] Last Infusion: 10/20/17 13:40 Dose: Infused Insulin Aspart (Novolog Insulin Correctional Sugar Inj) 0 unit SQ ACHS [facility]; Protocol Last Admin: 10/20/17 12:41 Dose: 2 unit Insulin Detemir (Levemir Inj) 30 unit SQ BID [facility] Last Admin: 10/20/17 09:21 Dose: 30 unit Lisinopril (Prinivil) 40 mg PO DAILY [facility] Last Admin: 10/20/17 09:20 Dose: 40 mg Ondansetron HCl (Zofran Odt) 4 mg PO Q4H PRN PRN Reason: NAUSEA/VOMITING Pharmacy Profile Note (Vancomycin Consult Pharmacy) 1 each OTHER UNSCH PRN PRN Reason: Pharmacy to dose Pharmacy Profile Note (Vancomycin Consult Pharmacy) 1 each OTHER UNSCH PRN PRN Reason: Pharmacy to dose Ropinirole HCl (Requip) 4 mg PO DAILY@1800 [facility] Last Admin: 10/19/17 17:34 Dose: 4 mg Trazodone HCl (Desyrel) 100 mg PO HS [facility] Last Admin: 10/19/17 20:48 Dose: 100 mg Venlafaxine HCl (Effexor Xr) 150 mg PO DAILY [facility] Last Admin: 10/20/17 09:20 Dose: 150 mg Vitamin D (Vitamin D3) 5,000 unit PO BID [facility] Last Admin: 10/20/17 09:20 Dose: 5,000 unit Allergies Allergy/AdvReac Type Severity Reaction Status Date / Time No Known Allergies Allergy Uncoded 04/18/15 15:42 Home Medications Medication Instructions Recorded Confirmed Type amiodarone 200 mg PO DAILY 10/18/17 10/18/17 History aspirin 81 mg PO DAILY 10/18/17 10/18/17 History atorvastatin 40 mg PO HS 10/18/17 10/18/17 History carvedilol [Coreg] 12.5 mg PO BID 10/18/17 10/18/17 History cholecalciferol (vitamin D3) 5,000 unit PO BID 10/18/17 10/18/17 History [Vitamin D3] dabigatran etexilate [Pradaxa] 150 mg PO BID 10/18/17 10/18/17 History empagliflozin [Jardiance] 10 mg PO DAILY 10/18/17 10/18/17 History furosemide [Lasix] 20 mg PO DAILY 10/18/17 10/18/17 History glipizide 5 mg PO BID 10/18/17 10/18/17 History insulin detemir U-100 [Levemir 60 unit SUB-Q BID 10/18/17 10/18/17 History FlexTouch U-100 Insuln] lisinopril 40 mg PO DAILY 10/18/17 10/18/17 History magnesium oxide 500 mg PO BID 10/18/17 10/18/17 History metformin 1,000 mg PO BID 10/18/17 10/18/17 History nitroglycerin [Nitrostat] 0.4 mg SUBLINGUAL Q5-15M PRN 10/18/17 10/18/17 History ranitidine HCl 150 mg PO BID 10/18/17 10/18/17 History ropinirole 4 mg PO HS 10/18/17 10/18/17 History trazodone 100 mg PO HS 10/18/17 10/18/17 History venlafaxine 150 mg PO DAILY 10/18/17 10/18/17 History Results - Labs CBC & Chem 7: 10/20/17 06:15 10/20/17 11:02 Laboratory Results - last 24 hr 10/19/17 10/19/17 10/20/17 17:33 20:23 06:15 WBC 6.2 RBC 4.73 Hgb 13.1 Hct 39.4 MCV 83.3 MCH 27.6 MCHC 33.2 RDW 15.1 Plt Count 212 MPV 8.4 Neut % (Auto) 40.1 Lymph % (Auto) 25.9 [place] % (Auto) 11.9 H Eos % (Auto) 21.1 H Baso % (Auto) 1.0 Neut # (Auto) 2.5 Lymph # (Auto) 1.6 [place] # (Auto) 0.7 Eos # (Auto) 1.3 H Baso # (Auto) 0.1 WBC Differential . Differential Comment Auto diff final Sodium Potassium Chloride Carbon Dioxide Anion Gap BUN Creatinine Estimated GFR POC Glucose 205 H 185 H Random Glucose Calcium Vancomycin Trough 10/20/17 10/20/17 10/20/17 07:56 11:02 11:57 WBC RBC Hgb Hct MCV MCH MCHC RDW Plt Count MPV Neut % (Auto) Lymph % (Auto) [place] % (Auto) Eos % (Auto) Baso % (Auto) Neut # (Auto) Lymph # (Auto) [place] # (Auto) Eos # (Auto) Baso # (Auto) WBC Differential Differential Comment Sodium 139 Potassium 4.2 Chloride 102 Carbon Dioxide 28.9 Anion Gap 8 BUN 16 Creatinine 1.23 Estimated GFR 60 L POC Glucose 165 H 167 H Random Glucose 197 H Calcium 8.7 Vancomycin Trough 12.6 H - Imaging Impressions WBC Scan Nuclear Medicine 10/19/17 06:00 CONCLUSION: 1. The only questionable areas of Ceretec accumulation involves the very medial margin of the first distal phalangeal bone on the left. It only involves the edge of the bone and not the marrow. Assessment and Plan - Assessment (1) Cellulitis of left foot Code(s): L03.116 - Cellulitis of left lower limb Status: Acute Plan: Continue IV antibiotics Took culture from plantar left hallux today after cleansing and re-dressed Reviewed ceretec with no sign of osteomyelitis at this time Patient will need picc and long term care pharmacist IV antibiotics x 6 weeks while wound heals. Patient will be going out of town Sunday through Sunday this week and will not be home to get IV, so d/c on oral x 7 days per culture to cover until he returns to continue IV antibiotics at home. Patient states he is finally on board to comply with nonweightbearing status and realizes the risk of amputation and further infection associated with continued noncompliance, and that it could still occur in spite of our best efforts
[2017-10-20] MEDS: traZODone 100 MG Tablet PO SCH (21:05)
--- NOTE | 2017-10-21 08:56 | P.PNIM ---
Subjective Interval history: Pt without any new complaints left foot dressing in place. Pt with some pain Physical Exam Vital signs: Vital Signs 10/20/17 12:00 10/20/17 16:00 10/20/17 20:00 Temperature 98.2 F 98 F 97.9 F Pulse Rate 61 60 64 Respiratory Rate 18 17 18 Blood Pressure 124/67 151/70 H 126/64 Pulse Oximetry 94 L 96 94 L 10/21/17 00:00 10/21/17 02:25 10/21/17 08:00 Temperature 97.8 F 97.3 F L Pulse Rate 61 54 L Respiratory Rate 17 15 18 Blood Pressure 115/61 136/70 Pulse Oximetry 92 L 95 Intake & Output 10/20/17 10/21/17 10/21/17 18:59 06:59 18:59 Intake Total 2117.5 / 2117.5 997.5 / 997.5 Balance 2117.5 / 2117.5 997.5 / 997.5 Weight 135.8 kg Intake: IV 517.5 / 517.5 517.5 / 517.5 Vancomycin Inj 1,750 MG In NS 517.5 / 517.5 517.5 / 517.5 Inj 500 ML @ 250 mls/hr IV.SIG Q12H [facility] Rx#:[id number] Oral 1600 / 1600 480 / 480 Other: # Voids 2 3 Date of Last Bowel Movement 10/19/17 10/20/17 Narrative: General: NAD, AAOx3 Chest: CTA Cardiac: Regular Abd: +BS, soft ND/NT Ext: left foot bandages are c/d/i Results - Labs CBC & Chem 7: 10/20/17 06:15 10/20/17 11:02 Laboratory Results - last 24 hr 10/20/17 10/20/17 10/20/17 11:02 11:57 16:48 Sodium 139 Potassium 4.2 Chloride 102 Carbon Dioxide 28.9 Anion Gap 8 BUN 16 Creatinine 1.23 Estimated GFR 60 L POC Glucose 167 H 148 H Random Glucose 197 H Calcium 8.7 Vancomycin Trough 12.6 H 10/20/17 10/21/17 20:19 08:48 Sodium Potassium Chloride Carbon Dioxide Anion Gap BUN Creatinine Estimated GFR POC Glucose 181 H 172 H Random Glucose Calcium Vancomycin Trough Microbiology 10/20/17 17:50 Wound - Toe Gram Stain - Final - Imaging Impressions WBC Scan Nuclear Medicine 10/19/17 06:00 CONCLUSION: 1. The only questionable areas of Ceretec accumulation involves the very medial margin of the first distal phalangeal bone on the left. It only involves the edge of the bone and not the marrow. Assessment and Plan - Assessment (1) Cellulitis of left foot Code(s): L03.116 - Cellulitis of left lower limb Status: Acute Plan: Left hallux cellulitis s/p ostectomy/partial phalangectomy of the left hallux on 09/26/17 - Pt is a 62 y/o male with diabetes mellitus, paroxysmal atrial fibrillation, cardiomyopathy sp AICD, and hx of colon cancer who recently underwent ostectomy/ partial phalangectomy of the left hallux on 09/26/[address] Dunlap for recurring ulceration that appeared to have the appearance of a plantar wart. Previous surgical cx's noted from September, growing GBS and MSSA - Pt was sent back to the hospital by Dr. Dunlap for direct admission for post -op infection of the left hallux and concern for possible osteomyelitis. The pt had reportedly been noncompliant with non-weight bearing status - Cont. Vancomycin with pharmacy consult at admission - Dr. Dunlap is following. - Ceretex scan (10/19/17) --> The only questionable areas of Ceretec accumulation involves the very medial margin of the first distal phalangeal bone on the left. It only involves the edge of the bone and not the marrow. - Recommendations from Podiatry were reviewed. - Consult ID for recommendations for continue treatment. - Supportive care Diabetes mellitus - Home [facility] on hold - Levemir dose decreased to 30units BID - NovoLog SSI - Accu checks Paroxysmal A. fib Cardiomyopathy s/p AICD - Home meds resumed including Pradaxa .
[2017-10-21] MEDS: Vancomycin Inj 1,750 MG in Sodium Chlor 0.9% Inj 500 ML IV.SIG SCH ×2 (09:39→21:57)
[2017-10-21] MEDS: Carvedilol 12.5 MG Tablet PO SCH ×2 (09:40→21:56)
[2017-10-21] MEDS: Insulin NovoLOG Aspart Correctional Sugar Inj SQ SCH ×4 (09:40→21:54)
[2017-10-21] MEDS: Venlafaxine XR 75 MG Capsule PO SCH (09:40)
[2017-10-21] MEDS: Famotidine 20 MG Tablet PO SCH ×2 (09:40→21:56)
[2017-10-21] MEDS: Furosemide 20 MG Tablet PO SCH (09:40)
[2017-10-21] MEDS: Amiodarone 200 MG Tablet PO SCH (09:40)
[2017-10-21] MEDS: Lisinopril 20 MG Tablet PO SCH (09:40)
[2017-10-21] MEDS: Insulin Detemir Inj 1,000 UNIT/10 ML Vial SQ SCH ×2 (09:41→21:55)
[2017-10-21] MEDS: Acetaminophen 325 MG Tablet PO PRN ×2 (09:51→21:54)
--- NOTE | 2017-10-21 12:02 | P.PNPOD ---
Physical Exam Vital signs: Vital Signs 10/20/17 12:00 10/20/17 16:00 10/20/17 20:00 Temperature 98.2 F 98 F 97.9 F Pulse Rate 61 60 64 Respiratory Rate 18 17 18 Blood Pressure 124/67 151/70 H 126/64 Pulse Oximetry 94 L 96 94 L 10/21/17 00:00 10/21/17 02:25 10/21/17 08:00 Temperature 97.8 F 97.3 F L Pulse Rate 61 54 L Respiratory Rate 17 15 18 Blood Pressure 115/61 136/70 Pulse Oximetry 92 L 95 Intake & Output 10/20/17 10/21/17 10/21/17 18:59 06:59 18:59 Intake Total 2117.5 / 2117.5 997.5 / 997.5 Balance 2117.5 / 2117.5 997.5 / 997.5 Weight 135.8 kg Intake: IV 517.5 / 517.5 517.5 / 517.5 Vancomycin Inj 1,750 MG In NS 517.5 / 517.5 517.5 / 517.5 Inj 500 ML @ 250 mls/hr IV.SIG Q12H [facility] Rx#:[id number] Oral 1600 / 1600 480 / 480 Other: # Voids 2 3 Date of Last Bowel Movement 10/19/17 10/20/17 Medications and Allergies Active Medications: Active Medications Acetaminophen (Tylenol) 650 mg PO Q4H PRN PRN Reason: fever or pain 1-10 Last Admin: 10/21/17 09:51 Dose: 650 mg Amiodarone HCl (Cordarone) 200 mg PO DAILY [facility] Last Admin: 10/21/17 09:40 Dose: 200 mg Aspirin (Aspirin Chew) 81 mg PO DAILY [facility] Last Admin: 10/21/17 09:40 Dose: 81 mg Atorvastatin Calcium (Lipitor) 40 mg PO HS [facility] Last Admin: 10/20/17 21:05 Dose: 40 mg Carvedilol (Coreg) 12.5 mg PO BID [facility] Last Admin: 10/21/17 09:40 Dose: 12.5 mg Dabigatran (Pradaxa) 150 mg PO BID [facility] Last Admin: 10/21/17 09:40 Dose: 150 mg Dextrose (D50w Vial) 50 ml IV.PUSH UNSCH PRN PRN Reason: PER HYPOGLYCEMIA PROTOCOL Famotidine (Pepcid) 20 mg PO BID [facility] Last Admin: 10/21/17 09:40 Dose: 20 mg Furosemide (Lasix) 20 mg PO DAILY [facility] Last Admin: 10/21/17 09:40 Dose: 20 mg Glucagon (Glucagon Inj) 1 mg OTHER PRN PRN PRN Reason: for Hypoglycemia Protocol Vancomycin HCl 1,750 mg/ (Sodium Chloride) 517.5 mls @ 250 mls/hr IV.SIG Q12H [facility] Last Admin: 10/21/17 09:39 Dose: 250 mls/hr Insulin Aspart (Novolog Insulin Correctional Sugar Inj) 0 unit SQ ACHS [facility]; Protocol Last Admin: 10/21/17 09:40 Dose: 2 unit Insulin Detemir (Levemir Inj) 30 unit SQ BID [facility] Last Admin: 10/21/17 09:41 Dose: 30 unit Lisinopril (Prinivil) 40 mg PO DAILY [facility] Last Admin: 10/21/17 09:40 Dose: 40 mg Ondansetron HCl (Zofran Odt) 4 mg PO Q4H PRN PRN Reason: NAUSEA/VOMITING Pharmacy Profile Note (Vancomycin Consult Pharmacy) 1 each OTHER UNSCH PRN PRN Reason: Pharmacy to dose Pharmacy Profile Note (Vancomycin Consult Pharmacy) 1 each OTHER UNSCH PRN PRN Reason: Pharmacy to dose Ropinirole HCl (Requip) 4 mg PO DAILY@1800 [facility] Last Admin: 10/20/17 17:48 Dose: 4 mg Trazodone HCl (Desyrel) 100 mg PO [facility] Last Admin: 10/20/17 21:05 Dose: 100 mg Venlafaxine HCl (Effexor Xr) 150 mg PO DAILY [facility] Last Admin: 10/21/17 09:40 Dose: 150 mg Vitamin D (Vitamin D3) 5,000 unit PO BID [facility] Last Admin: 10/21/17 09:40 Dose: 5,000 unit Allergies Allergy/AdvReac Type Severity Reaction Status Date / Time No Known Allergies Allergy Uncoded 04/18/15 15:42 Home Medications Medication Instructions Recorded Confirmed Type amiodarone 200 mg PO DAILY 10/18/17 10/18/17 History aspirin 81 mg PO DAILY 10/18/17 10/18/17 History atorvastatin 40 mg PO HS 10/18/17 10/18/17 History carvedilol [Coreg] 12.5 mg PO BID 10/18/17 10/18/17 History cholecalciferol (vitamin D3) 5,000 unit PO BID 10/18/17 10/18/17 History [Vitamin D3] dabigatran etexilate [Pradaxa] 150 mg PO BID 10/18/17 10/18/17 History empagliflozin [Jardiance] 10 mg PO DAILY 10/18/17 10/18/17 History furosemide [Lasix] 20 mg PO DAILY 10/18/17 10/18/17 History glipizide 5 mg PO BID 10/18/17 10/18/17 History insulin detemir U-100 [Levemir 60 unit SUB-Q BID 10/18/17 10/18/17 History FlexTouch U-100 Insuln] lisinopril 40 mg PO DAILY 10/18/17 10/18/17 History magnesium oxide 500 mg PO BID 10/18/17 10/18/17 History metformin 1,000 mg PO BID 10/18/17 10/18/17 History nitroglycerin [Nitrostat] 0.4 mg SUBLINGUAL Q5-15M PRN 10/18/17 10/18/17 History ranitidine HCl 150 mg PO BID 10/18/17 10/18/17 History ropinirole 4 mg PO HS 10/18/17 10/18/17 History trazodone 100 mg PO HS 10/18/17 10/18/17 History venlafaxine 150 mg PO DAILY 10/18/17 10/18/17 History Results - Labs CBC & Chem 7: 10/20/17 06:15 10/20/17 11:02 Laboratory Results - last 24 hr 10/20/17 10/20/17 10/20/17 11:57 16:48 20:19 POC Glucose 167 H 148 H 181 H 10/21/17 08:48 POC Glucose 172 H Microbiology 10/20/17 17:50 Wound - Toe Gram Stain - Final Assessment and Plan - Assessment (1) Cellulitis of left foot Code(s): L03.116 - Cellulitis of left lower limb Status: Acute Plan: Continue IV antibiotics Took another culture from plantar left hallux today after cleansing and re- dressed Reviewed ceretec with no clear sign of osteomyelitis at this time Recommend patient to get picc and moth exterminator IV antibiotics x 6 weeks while wound heals as precaution, even though surgical specimen from original surgery was negative for osteo. However, patient has post-surgical infection in the site , which likely communicates to area where bone was removed, and should be treated as direct extension osteomyelitis until proven otherwise at this point. Patient will be going out of town Sunday through Sunday this week and will not be home to get IV If possible, please discharge on oral with coverage and coordinate patient to get PICC when back in town and resume IV If new culture does not grow (which is possible since patient has been on oral and IV antibiotics since showing sign of cellulitis postoperatively), please base IV on his operative swab culture results Patient states he will comply with nonweightbearing status and realizes the risk of amputation and further infection associated with continued noncompliance , and that it could still occur in spite of our best efforts
--- NOTE | 2017-10-21 18:10 | P.CONID ---
History of Present Illness Service: ID Consult date: 10/21/17 Requesting Physician: Ludwig Soares Reason for Consult: DFI, R hallux osteomyelitis Primary Care Provider: UNKNOWN Family Provider: Main Knowles MD Chief Complaint: Left hallux infection History of Present Illness: 62 yo diabetic male with multiple med problems presented with worsening L hallux infection [employer] noted probbing to the bome MRI not done 03/16 AICD WBC scan showed small changes cw possible osteomyelitis Cultures , office showed MRSA R to clindamycin Op culture this admission with GPC, pt is on Vancomycin Pt is afebrile nl wbc Past Medical Hx: Recurring ulceration to the left hallux Paroxysmal A. fib CAD with hx of [place] Hx of colon cancer s/p partial colectomy Cardiomyopathy, EF 40% s/p AICD Hyperlipidemia Diabetes mellitus, Hgb A1C 6.9% in 02/2017 Diabetic neuropathy Obesity PAD RLS Past Surgical Hx: Ostectomy/partial phalangectomy of left hallux on 09/26/[address] Dunlap Right hemicolectomy Colonoscopy in 11/[address] Owens Appendectomy AICD Nasal septal deviation repair PTCA with previous stent placement. Family Hx: Family hx of colon cancer Sister at age 47 after Acute [place] Social Hx: Rare alcohol use Denies any tobacco or illicit drug use Review of Systems All other systems reviewed negative except as stated in HPI PMFSH - History History Provided By: Patient - Tobacco History Second Hand Smoke Exposure: No Smoking Status: Never smoker - Alcohol History How Often Do You Have a Drink Containing Alcohol: Monthly or less - Substance Use History Substance History: No History of Abuse - Travel History Recent Travel in the [place] Within the Last 8 Weeks: No Recent Travel Out of the Country Within the Last 8 Weeks: No Medications and Allergies Active Medications: Active Medications Acetaminophen (Tylenol) 650 mg PO Q4H PRN PRN Reason: fever or pain 1-10 Last Admin: 10/21/17 09:51 Dose: 650 mg Amiodarone HCl (Cordarone) 200 mg PO DAILY [facility] Last Admin: 10/21/17 09:40 Dose: 200 mg Aspirin (Aspirin Chew) 81 mg PO DAILY [facility] Last Admin: 10/21/17 09:40 Dose: 81 mg Atorvastatin Calcium (Lipitor) 40 mg PO HS [facility] Last Admin: 10/20/17 21:05 Dose: 40 mg Carvedilol (Coreg) 12.5 mg PO BID [facility] Last Admin: 10/21/17 09:40 Dose: 12.5 mg Dabigatran (Pradaxa) 150 mg PO BID [facility] Last Admin: 10/21/17 09:40 Dose: 150 mg Dextrose (D50w Vial) 50 ml IV.PUSH UNSCH PRN PRN Reason: PER HYPOGLYCEMIA PROTOCOL Famotidine (Pepcid) 20 mg PO BID [facility] Last Admin: 10/21/17 09:40 Dose: 20 mg Furosemide (Lasix) 20 mg PO DAILY [facility] Last Admin: 10/21/17 09:40 Dose: 20 mg Glucagon (Glucagon Inj) 1 mg OTHER PRN PRN PRN Reason: for Hypoglycemia Protocol Vancomycin HCl 1,750 mg/ (Sodium Chloride) 517.5 mls @ 250 mls/hr IV.SIG Q12H [facility] Last Infusion: 10/21/17 11:44 Dose: Infused Insulin Aspart (Novolog Insulin Correctional Sugar Inj) 0 unit SQ ACHS [facility]; Protocol Last Admin: 10/21/17 13:30 Dose: 2 unit Insulin Detemir (Levemir Inj) 30 unit SQ BID [facility] Last Admin: 10/21/17 09:41 Dose: 30 unit Lisinopril (Prinivil) 40 mg PO DAILY [facility] Last Admin: 10/21/17 09:40 Dose: 40 mg Ondansetron HCl (Zofran Odt) 4 mg PO Q4H PRN PRN Reason: NAUSEA/VOMITING Pharmacy Profile Note (Vancomycin Consult Pharmacy) 1 each OTHER UNSCH PRN PRN Reason: Pharmacy to dose Pharmacy Profile Note (Vancomycin Consult Pharmacy) 1 each OTHER UNSCH PRN PRN Reason: Pharmacy to dose Ropinirole HCl (Requip) 4 mg PO DAILY@1800 [facility] Last Admin: 10/20/17 17:48 Dose: 4 mg Trazodone HCl (Desyrel) 100 mg PO HS [facility] Last Admin: 10/20/17 21:05 Dose: 100 mg Venlafaxine HCl (Effexor Xr) 150 mg PO DAILY [facility] Last Admin: 10/21/17 09:40 Dose: 150 mg Vitamin D (Vitamin D3) 5,000 unit PO BID [facility] Last Admin: 10/21/17 09:40 Dose: 5,000 unit Allergies Allergy/AdvReac Type Severity Reaction Status Date / Time No Known Allergies Allergy Uncoded 04/18/15 15:42 Home Medications Medication Instructions Recorded Confirmed Type amiodarone 200 mg PO DAILY 10/18/17 10/18/17 History aspirin 81 mg PO DAILY 10/18/17 10/18/17 History atorvastatin 40 mg PO HS 10/18/17 10/18/17 History carvedilol [Coreg] 12.5 mg PO BID 10/18/17 10/18/17 History cholecalciferol (vitamin D3) 5,000 unit PO BID 10/18/17 10/18/17 History [Vitamin D3] dabigatran etexilate [Pradaxa] 150 mg PO BID 10/18/17 10/18/17 History empagliflozin [Jardiance] 10 mg PO DAILY 10/18/17 10/18/17 History furosemide [Lasix] 20 mg PO DAILY 10/18/17 10/18/17 History glipizide 5 mg PO BID 10/18/17 10/18/17 History insulin detemir U-100 [Levemir 60 unit SUB-Q BID 10/18/17 10/18/17 History FlexTouch U-100 Insuln] lisinopril 40 mg PO DAILY 10/18/17 10/18/17 History magnesium oxide 500 mg PO BID 10/18/17 10/18/17 History metformin 1,000 mg PO BID 10/18/17 10/18/17 History nitroglycerin [Nitrostat] 0.4 mg SUBLINGUAL Q5-15M PRN 10/18/17 10/18/17 History ranitidine HCl 150 mg PO BID 10/18/17 10/18/17 History ropinirole 4 mg PO HS 10/18/17 10/18/17 History trazodone 100 mg PO HS 10/18/17 10/18/17 History venlafaxine 150 mg PO DAILY 10/18/17 10/18/17 History Exam Vital signs: Vital Signs 10/20/17 20:00 10/21/17 00:00 10/21/17 02:25 Temperature 97.9 F 97.8 F Pulse Rate 64 61 Respiratory Rate 18 17 15 Blood Pressure 126/64 115/61 Pulse Oximetry 94 L 92 L 10/21/17 08:00 10/21/17 12:00 10/21/17 16:00 Temperature 97.3 F L 97.7 F 97.6 F Pulse Rate 54 L 59 L 80 Respiratory Rate 18 Blood Pressure 136/70 131/70 131/77 Pulse Oximetry 95 94 L 94 L Intake & Output 10/20/17 10/21/17 10/21/17 18:59 06:59 18:59 Intake Total 2117.5 / 2117.5 997.5 / 997.5 517.50 / 517.50 Balance 2117.5 / 2117.5 997.5 / 997.5 517.50 / 517.50 Weight 135.8 kg Intake: IV 517.5 / 517.5 517.5 / 517.5 517.50 / 517.50 Vancomycin Inj 1,750 MG In NS 517.5 / 517.5 517.5 / 517.5 517.50 / 517.50 Inj 500 ML @ 250 mls/hr IV.SIG Q12H [facility] Rx#:[id number] Oral 1600 / 1600 480 / 480 Other: # Voids 2 3 Date of Last Bowel Movement 10/19/17 10/20/17 10/20/17 - Constitutional no acute distress, obese - Routine HEENT Exam Head: Present: normocephalic, atraumatic Eye: Present: EOMI, PERRL ENT: Present: mucous membranes moist, dentition normal - Routine Neck Exam Present: supple, full ROM. Absent: JVD - Routine Respiratory Exam Present: decreased breath sounds, CTA bilaterally. Absent: accessory muscle use - Routine Cardiovascular Exam Present: RRR, S1, S2. Absent: murmur, gallop, rubs - Routine Abdominal Exam Present: soft, normoactive bowel sounds. Absent: tenderness, distended, organomegaly - Routine Extremities Exam Present: edema (mild 1+ pedal ), full ROM. Absent: cyanosis, clubbing Comments: Ulceration present with erythema and edema to L hallux. Light touch sensation absent. Pulses palpable. L hallux with plantar wound with small amount of serosang dc - Routine Skin Exam Present: intact, dry, warm. Absent: lesions - Routine Neurological Exam Present: alert, oriented X3, CN II-XII intact, moving all extremities, vision grossly intact, hearing grossly intact, normal speech - Routine Psychiatric Exam Present: normal affect, normal thought process, cooperative Results - Labs CBC & Chem 7: 10/20/17 06:15 10/20/17 11:02 Labs: Laboratory Results - last 24 hr 10/20/17 10/21/17 10/21/17 20:19 08:48 13:03 POC Glucose 181 H 172 H 150 H 10/21/17 17:31 POC Glucose 236 H - Imaging ITS Impressions Foot X-Ray 10/18/17 00:00 CONCLUSION: 1. Possible avulsion fracture or soft tissue calcification adjacent to the medial base of the left first distal phalanx. 2. Soft tissue swelling involving the left great toe. 3. 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 4. Plantar and Achilles calcaneus spurs. WBC Scan Nuclear Medicine 10/19/17 06:00 CONCLUSION: 1. The only questionable areas of Ceretec accumulation involves the very medial margin of the first distal phalangeal bone on the left. It only involves the edge of the bone and not the marrow. Assessment and Plan - Plan L hallux osteomyelytits 6 weeks of IV abx We can use zyvox for the first week 2/2 pt travel paln, on arrival he can obtain PICC and start vancomycin Effexor should be called x 2 days prior to initiation of zyvox. Effexor can be restarted 2 days after zyvox stopped fu clx untill final Pt will need to o/p radilogy dptn to get PICC dw pt sacha goncalves pharmacist
[2017-10-21] MEDS: traZODone 100 MG Tablet PO SCH (21:56)
[2017-10-22] MEDS: Famotidine 20 MG Tablet PO SCH ×2 (09:14→21:37)
[2017-10-22] MEDS: Amiodarone 200 MG Tablet PO SCH (09:15)
[2017-10-22] MEDS: Carvedilol 12.5 MG Tablet PO SCH ×2 (09:15→21:37)
[2017-10-22] MEDS: Furosemide 20 MG Tablet PO SCH (09:16)
[2017-10-22] MEDS: Insulin Detemir Inj 1,000 UNIT/10 ML Vial SQ SCH ×2 (09:22→22:18)
[2017-10-22] MEDS: Insulin NovoLOG Aspart Correctional Sugar Inj SQ SCH ×4 (09:28→22:18)
[2017-10-22] MEDS: Lisinopril 20 MG Tablet PO SCH (09:29)
[2017-10-22] MEDS: Acetaminophen 325 MG Tablet PO PRN ×2 (09:35→21:37)
[2017-10-22] MEDS: Vancomycin Inj 1,750 MG in Sodium Chlor 0.9% Inj 500 ML IV.SIG SCH ×2 (09:35→21:36)
--- NOTE | 2017-10-22 10:22 | P.PNIM ---
Subjective Interval history: Pt feeling well today No new complaints Physical Exam Vital signs: Vital Signs 10/21/17 12:00 10/21/17 16:00 10/21/17 20:00 Temperature 97.7 F 97.6 F 97.8 F Pulse Rate 59 L 80 60 Respiratory Rate 18 18 17 Blood Pressure 131/70 131/77 133/68 Pulse Oximetry 94 L 94 L 95 10/22/17 00:00 10/22/17 08:00 Temperature 97.4 F L 97.5 F L Pulse Rate 60 60 Respiratory Rate 17 18 Blood Pressure 141/73 H 154/83 H Pulse Oximetry 96 94 L Intake & Output 10/21/17 10/22/17 10/22/17 18:59 06:59 18:59 Intake Total 2717.50 / 2717.50 997.5 / 997.5 Balance 2717.50 / 2717.50 997.5 / 997.5 Weight 135.8 kg Intake: IV 517.50 / 517.50 517.5 / 517.5 Vancomycin Inj 1,750 MG In NS 517.50 / 517.50 517.5 / 517.5 Inj 500 ML @ 250 mls/hr IV.SIG Q12H [facility] Rx#:[id number] Oral 2200 / 2200 480 / 480 Other: # Voids 3 3 Date of Last Bowel Movement 10/20/17 Narrative: General: NAD, AAOx3 Chest: CTA Cardiac: Regular Abd: +BS, soft ND/NT Ext: left foot bandages are c/d/i Results - Labs CBC & Chem 7: 10/23/17 05:38 10/23/17 05:38 Laboratory Results - last 24 hr 10/21/17 10/21/17 10/21/17 13:03 17:31 21:50 POC Glucose 150 H 236 H 195 H 10/22/17 08:19 POC Glucose 164 H Microbiology 10/21/17 11:58 Wound - Toe Gram Stain - Final 10/20/17 17:50 Wound - Toe Gram Stain - Final 10/20/17 17:50 Wound - Toe Wound Culture - Preliminary gram positive cocci - Imaging Foot X-Ray 10/18/17 00:00 CONCLUSION: 1. Possible avulsion fracture or soft tissue calcification adjacent to the medial base of the left first distal phalanx. 2. Soft tissue swelling involving the left great toe. 3. 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 4. Plantar and Achilles calcaneus spurs. WBC Scan Nuclear Medicine 10/19/17 06:00 CONCLUSION: 1. The only questionable areas of Ceretec accumulation involves the very medial margin of the first distal phalangeal bone on the left. It only involves the edge of the bone and not the marrow. Assessment and Plan - Assessment (1) Cellulitis of left foot Code(s): L03.116 - Cellulitis of left lower limb Status: Acute Plan: Left hallux cellulitis s/p ostectomy/partial phalangectomy of the left hallux on 09/26/17 - Pt is a 62 y/o male with diabetes mellitus, paroxysmal atrial fibrillation, cardiomyopathy sp AICD, and hx of colon cancer who recently underwent ostectomy/ partial phalangectomy of the left hallux on 09/26/[address] Dunlap for recurring ulceration that appeared to have the appearance of a plantar wart. Previous surgical cx's noted from September, growing GBS and MSSA - Pt was sent back to the hospital by Dr. Dunlap for direct admission for post -op infection of the left hallux and concern for possible osteomyelitis. The pt had reportedly been noncompliant with non-weight bearing status - Cont. Vancomycin with pharmacy consult at admission - Dr. Dunlap is following. - Ceretex scan (10/19/17) --> The only questionable areas of Ceretec accumulation involves the very medial margin of the first distal phalangeal bone on the left. It only involves the edge of the bone and not the marrow. - Due to pts travel plans to [place] for his [employer] service, pt requesting initial treatment with oral antibiotics and then resume IV Abx once he returns to [place] on Sunday 10/29. - Recommendations from Podiatry were reviewed. - Appreciate consult from ID. Per discussion between Dr. Yousif and Dr. Soares on 10/21/17, pt will receive IV Vancomycin on 10/22, then Daptomycin on 10/23, then starting Sunday, 10/24, after his Effexor has been held for 2 days, he will start oral Zyvox. The Zyvox will be continued through Sunday. Pt will return to [facility] [place] Radiology department on Sunday10/29/17 for PICC line placement and IV Vancomycin will be resumed on Sunday10/29/[address] Zurita and Dr. Dunlap. Current recommendations are based on the previous surgical cultures which grew out MSSA and GBS. - Pt had bedside cultures taken by Dr. Dunlap on 10/20 and 10/21. The cultures from the toe wound take on 10/20 are currently growing gram positive cocci. Final cultures are pending. - Supportive care Diabetes mellitus - Home [facility] on hold - Levemir dose decreased to 30units BID - NovoLog SSI - Accu checks Paroxysmal A. fib Cardiomyopathy s/p AICD - Home meds resumed including Pradaxa . - Attending Attestation Patient examined. Assessment and plan formulated with Karrie Sweet PA-C. I agree with the above.
[2017-10-22] MEDS: traZODone 100 MG Tablet PO SCH (21:37)
[2017-10-23 06:32] LABS: Baso # (Auto) 0.1 th/mm3 (0.0-0.2); Baso % (Auto) 0.9 % (0.0-2.0); Eos # (Auto) 0.7 th/mm3 (0.0-0.4); Hematocrit 38.3 % (39.0-51.0); Hemoglobin 12.8 gm/dL (13.0-17.0); Lymph # (Auto) 1.9 th/mm3 (1.0-4.8); Lymph % (Auto) 32.6 % (9.0-44.0); Mean Corpuscular HGB Conc 33.5 % (32.0-36.0); Mean Corpuscular Hemoglobin 28.1 pg (27.0-34.0); Mean Corpuscular Volume 83.7 fL (80.0-100.0); Mean Platelet Volume 8.3 fL (7.0-11.0); Mono # (Auto) 0.8 th/mm3 (0.0-0.9); Mono % (Auto) 13.4 % (0.0-8.0); Neut # (Auto) 2.4 th/mm3 (1.8-7.7); Neut % (Auto) 41.1 % (16.0-70.0); Platelet Count 192 th/mm3 (150-450); Red Blood Count 4.57 mil/mm3 (4.50-5.90); Red Cell Distribution Width 15.3 % (11.6-17.2); White Blood Count 5.9 th/mm3 (4.0-11.0)
[2017-10-23 06:58] LABS: Calcium 8.3 mg/dL (8.5-10.1); Carbon Dioxide 28.3 meq/L (21.0-32.0); Potassium 3.8 meq/L (3.5-5.1)
[2017-10-23] MEDS: Insulin NovoLOG Aspart Correctional Sugar Inj SQ SCH ×2 (08:16→12:54)
[2017-10-23] MEDS: Carvedilol 12.5 MG Tablet PO SCH (09:43)
[2017-10-23] MEDS: Amiodarone 200 MG Tablet PO SCH (09:43)
[2017-10-23] MEDS: Insulin Detemir Inj 1,000 UNIT/10 ML Vial SQ SCH (09:44)
[2017-10-23] MEDS: Furosemide 20 MG Tablet PO SCH (09:44)
[2017-10-23] MEDS: Famotidine 20 MG Tablet PO SCH (09:44)
[2017-10-23] MEDS: Lisinopril 20 MG Tablet PO SCH (09:44)
[2017-10-23] MEDS ORDERED: Pharmacy Ordered Lab Info OTHER ONE (09:45)
[2017-10-23] MEDS: Acetaminophen 325 MG Tablet PO PRN (09:50)
[2017-10-23] MEDS: Vancomycin Inj 1,750 MG in Sodium Chlor 0.9% Inj 500 ML IV.SIG SCH (11:15)
--- NOTE | 2017-10-23 12:30 | P.DCO ---
Post Hospital Infusion Therapy Location of Infusion Therapy: Home Health Care IV Infusion Order Patient Weight: 135.8 kg - Diagnosis (1) Diabetic foot infection Code(s): E11.628 - Type 2 diabetes mellitus with other skin complications; L08.9 - Local infection of the skin and subcutaneous tissue, unspecified - Administer Medication Vancomycin Directions: q 12 hours Additional Dosing Instructions: 1750 mg IV q 12 hrs Start Treatment: 10/29/17 Stop Treatment: 12/03/17 - Additional Information Venous Access: PICC Line Additional Instructions: [x] Peripheral flush and dressing changes per protocol [x] Implanted port and central casket liner: * Implanted port: 10 ml Normal Saline followed by 5 ml Heparin 100 units/ml Heparin flush after each use and monthly to maintain. [] May leave port accessed during therapy. [] May leave peripheral site accessed for duration of therapy. [x] If patient has SOB or respiratory distress, check oxygen saturation. If less than 90% or clinical signs of respiratory distress, administer oxygen at 2 L/min. via nasal cannula and notify physician. [x] Anaphylaxis/Reaction orders: * Stop infusion. * Keep IV line open with saline flush. * Notify physician. * Monitor vital signs every 15 minutes until symptoms resolve. * Check Oxygen saturation; Oxygen at 2 L/min. via nasal cannula if less than 90% or clinical signs of respiratory distress. * Administer diphenhydramine (Benadryl) 25 mg IV STAT, (unless patient has received as pre-med). May repeat once, if necessary. * Solu-Cortef 250 mg IVP over 30-60 seconds, use 100 mg vials for each dissolution. * Epinephrine (1mg/1 ml) 0.3 mg subcutaneously or IVP now with any signs of respiratory distress. * Check with physician for new additional pre-med orders if patient is re- challenged or re-treated. [x] May remove PICC line when treatment complete, after confirming with Physician. [x] If the patient is admitted to the hospital, the ED, or transferred via [facility] , complete transfer form including medication reconciliation order sheet. Weekly Labs: CBC w/diff, Creatinine, CRP, SED Rate, Vancomycin Trough Additional Information: PICC line to be put in o/p radiology dptm on Mon 17, 2 pm Allergies No Known Allergies Allergy (Uncoded 04/18/15 15:42)
--- NOTE | 2017-10-23 12:37 | P.PNID ---
Subjective Remarks: no new co doing OK Antibiotics: vancomycin level 15.7 Allergies/Adverse Reactions: Allergies No Known Allergies Allergy (Uncoded 04/18/15 15:42) Objective Vital Signs 10/22/17 16:00 10/22/17 20:12 10/23/17 00:15 Temperature 98.6 F 98.0 F 98.4 F Pulse Rate 58 L 54 L 63 Respiratory Rate 18 16 18 Blood Pressure 154/84 H 143/77 H 144/71 H Pulse Oximetry 96 95 96 10/23/17 08:00 10/23/17 11:06 Temperature 97.4 F L Pulse Rate 60 Respiratory Rate 18 1 L Blood Pressure 156/72 H Pulse Oximetry 95 Intake & Output 10/22/17 10/23/17 10/23/17 18:59 06:59 18:59 Intake Total 1717.5 / 1717.5 1297.5 / 1297.5 Balance 1717.5 / 1717.5 1297.5 / 1297.5 Weight 135.8 kg 135.8 kg Intake: IV 517.5 / 517.5 517.5 / 517.5 Vancomycin Inj 1,750 MG In NS 517.5 / 517.5 517.5 / 517.5 Inj 500 ML @ 250 mls/hr IV.SIG Q12H [facility] Rx#:[id number] Oral 1200 / 1200 780 / 780 Other: # Voids 4 2 # Bowel Movements 1 10/21/17 11:58 Wound - Toe Gram Stain - Final 10/21/17 11:58 Wound - Toe Wound Culture - Preliminary No growth in 48 hours 10/20/17 17:50 Wound - Toe Gram Stain - Final 10/20/17 17:50 Wound - Toe Wound Culture - Preliminary Group B beta Strep Staphylococcus aureus Lab - Hematology Results 10/23/17 05:38 WBC 5.9 RBC 4.57 Hgb 12.8 L Hct 38.3 L MCV 83.7 MCH 28.1 MCHC 33.5 RDW 15.3 Plt Count 192 MPV 8.3 Neut % (Auto) 41.1 Lymph % (Auto) 32.6 [place] % (Auto) 13.4 H Eos % (Auto) 12.0 H Baso % (Auto) 0.9 Neut # (Auto) 2.4 Lymph # (Auto) 1.9 [place] # (Auto) 0.8 Eos # (Auto) 0.7 H Baso # (Auto) 0.1 WBC Differential . Differential Comment Auto diff final Lab - Chemistry Results 10/21/17 10/21/17 10/21/17 13:03 17:31 21:50 Sodium Potassium Chloride Carbon Dioxide Anion Gap BUN Creatinine Estimated GFR POC Glucose 150 H 236 H 195 H Random Glucose Calcium 10/22/17 10/22/17 10/22/17 08:19 12:33 17:31 Sodium Potassium Chloride Carbon Dioxide Anion Gap BUN Creatinine Estimated GFR POC Glucose 164 H 187 H 171 H Random Glucose Calcium 10/22/17 10/23/17 10/23/17 21:40 05:38 07:50 Sodium 142 Potassium 3.8 Chloride 107 Carbon Dioxide 28.3 Anion Gap 7 BUN 15 Creatinine 0.91 Estimated GFR 85 L POC Glucose 210 H 124 H Random Glucose 108 H Calcium 8.3 L Imaging: ITS Impressions Foot X-Ray 10/18/17 00:00 CONCLUSION: 1. Possible avulsion fracture or soft tissue calcification adjacent to the medial base of the left first distal phalanx. 2. Soft tissue swelling involving the left great toe. 3. 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 4. Plantar and Achilles calcaneus spurs. WBC Scan Nuclear Medicine 10/19/17 06:00 CONCLUSION: 1. The only questionable areas of Ceretec accumulation involves the very medial margin of the first distal phalangeal bone on the left. It only involves the edge of the bone and not the marrow. Physical Exam: GENERAL: NAD SKIN: Warm and dry. NO rash EYES: No scleral icterus. No injection or drainage. NECK: Supple, trachea midline. No JVD or lymphadenopathy. RESPIRATORY: Breathing unlaboured No accessory muscle use. GASTROINTESTINAL: Abdomen soft, non-tender, nondistended. MUSCULOSKELETAL: No cyanosis, or edema. L foot dressing on place NEURO: awake alert non focal PSYCH: calm, cooperative, good judgement Assessment and Plan (1) Diabetic foot infection Status: Acute Code(s): E11.628 - Type 2 diabetes mellitus with other skin complications; L08.9 - Local infection of the skin and subcutaneous tissue, unspecified - Plan L hallux osteomyelytits 6 weeks of IV abx We can use zyvox for the first week 2/2 pt travel paln, on arrival he can obtain PICC and start vancomycin Effexor should be called x 2 days prior to initiation of zyvox. Effexor can be restarted 2 days after zyvox stopped fu clx untill final PICC line to be put in o/p radiology dptm on Sun, 2 pm Radiologist indicated no need to hold any pt's meds prior to procedure Pt was educated on side effects of the abx and what smx to report to HC provuider OK to dc OPAT for vanco filled out dw pt dw IR RN dw pharmacist dw case mnnt
--- NOTE | 2017-10-23 15:15 | P.DS ---
Date of admission: 10/18/17 17:49 Primary care physician: UNKNOWN Attending physician on discharge: Amor Solorzano Anticipated date of discharge: 10/23/17 Brief History from admission: Mr. Schaffer is a 62 y/o male with diabetes mellitus, paroxysmal atrial fibrillation, cardiomyopathy sp AICD, and hx of colon cancer who recently underwent ostectomy/partial phalangectomy of the left hallux on 09/26/[address] Dunlap for recurring ulceration that appeared to have the appearance of a plantar wart. Pt was sent back to the hospital by Dr. Dunlap for direct admission for post-op infection of the left hallux and concern for possible osteomyelitis. DS: Summary Hospital Course: Assessment and Plan - Assessment (1) Cellulitis of left foot Code(s): L03.116 - Cellulitis of left lower limb Status: Acute Plan: Left hallux cellulitis s/p ostectomy/partial phalangectomy of the left hallux on 09/26/17 - Pt is a 62 y/o male with diabetes mellitus, paroxysmal atrial fibrillation, cardiomyopathy sp AICD, and hx of colon cancer who recently underwent ostectomy/ partial phalangectomy of the left hallux on 09/26/[address] Dunlap for recurring ulceration that appeared to have the appearance of a plantar wart. Previous surgical cx's noted from September, growing GBS and MSSA - Pt was sent back to the hospital by Dr. Dunlap for direct admission for post -op infection of the left hallux and concern for possible osteomyelitis. The pt had reportedly been noncompliant with non-weight bearing status - Cont. Vancomycin with pharmacy consult at admission - Dr. Dunlap is following. - Ceretex scan (10/19/17) --> The only questionable areas of Ceretec accumulation involves the very medial margin of the first distal phalangeal bone on the left. It only involves the edge of the bone and not the marrow. - Due to pts travel plans to [place] for his [place] [employer] service, pt requesting initial treatment with oral antibiotics and then resume IV Abx once he returns to [place] on Sunday 10/29. - Recommendations from Podiatry were reviewed. - Case d/w Dr. Yousif (10/23/17) - Pt receiving IV vancomycin thru (10/23) - Effexor on hold - Pt to start oral Zyvox 10/24 thru saturday 10/28 - Pt to have PICC placed at [facility] 10/29 and IV Vancomycin will be resumed on Sunday10/29/[address] Zurita and Dr. Dunlap. Current recommendations are based on the previous surgical cultures which grew out MSSA and GBS. - Pt had bedside cultures taken by Dr. Dunlap on 10/20 and 10/21. The cultures from the toe wound take on 10/20 --> staph aureus & group B strep - would be preferable to maintain pt on IV vancomycin without this planned gap with PO zyvox. However, pt states that he is unable to change travel plans to travel to [place] for [facility] [employer]. - see discharge orders Diabetes mellitus - Home OHA on hold - Levemir dose decreased to 30units BID - resume previous outpt regiment upon discharge. Paroxysmal A. fib Cardiomyopathy s/p AICD - Home meds resumed including Pradaxa - Time Spent with Patient Total time spent providing and/or coordinating discharge services: Greater than 30 minutes - Quality: VTE Deep Vein Thrombosis/Pulmonary Embolism Present on Admission: No Exam Vital signs: Vital Signs 10/22/17 16:00 10/22/17 20:12 10/23/17 00:15 Temperature 98.6 F 98.0 F 98.4 F Pulse Rate 58 L 54 L 63 Respiratory Rate 18 16 18 Blood Pressure 154/84 H 143/77 H 144/71 H Pulse Oximetry 96 95 96 10/23/17 08:00 10/23/17 11:06 10/23/17 12:00 Temperature 97.4 F L 97.6 F Pulse Rate 60 59 L Respiratory Rate 18 1 L 18 Blood Pressure 156/72 H 129/72 Pulse Oximetry 95 94 L Intake & Output 10/22/17 10/23/17 10/23/17 18:59 06:59 18:59 Intake Total 1717.5 / 1717.5 1297.5 / 1297.5 517.5 / 517.5 Balance 1717.5 / 1717.5 1297.5 / 1297.5 517.5 / 517.5 Weight 135.8 kg 135.8 kg Intake: IV 517.5 / 517.5 517.5 / 517.5 517.5 / 517.5 Vancomycin Inj 1,750 MG In NS 517.5 / 517.5 517.5 / 517.5 517.5 / 517.5 Inj 500 ML @ 250 mls/hr IV.SIG Q12H [facility] Rx#:[id number] Oral 1200 / 1200 780 / 780 Other: # Voids 4 2 # Bowel Movements 1 Results Procedures completed during hospitalization: n/a Labs on day of discharge: Labs from last 24 hours 10/23/17 10/23/17 10/23/17 12:23 11:00 07:50 WBC RBC Hgb Hct MCV MCH MCHC RDW Plt Count MPV Neut % (Auto) Lymph % (Auto) [place] % (Auto) Eos % (Auto) Baso % (Auto) Neut # (Auto) Lymph # (Auto) [place] # (Auto) Eos # (Auto) Baso # (Auto) WBC Differential Differential Comment Sodium Potassium Chloride Carbon Dioxide Anion Gap BUN Creatinine Estimated GFR POC Glucose 160 H 124 H Random Glucose Calcium Vancomycin Trough 15.7 H 10/23/17 10/23/17 10/22/17 05:38 05:38 21:40 WBC 5.9 RBC 4.57 Hgb 12.8 L Hct 38.3 L MCV 83.7 MCH 28.1 MCHC 33.5 RDW 15.3 Plt Count 192 MPV 8.3 Neut % (Auto) 41.1 Lymph % (Auto) 32.6 [place] % (Auto) 13.4 H Eos % (Auto) 12.0 H Baso % (Auto) 0.9 Neut # (Auto) 2.4 Lymph # (Auto) 1.9 [place] # (Auto) 0.8 Eos # (Auto) 0.7 H Baso # (Auto) 0.1 WBC Differential . Differential Comment Auto diff final Sodium 142 Potassium 3.8 Chloride 107 Carbon Dioxide 28.3 Anion Gap 7 BUN 15 Creatinine 0.91 Estimated GFR 85 L POC Glucose 210 H Random Glucose 108 H Calcium 8.3 L Vancomycin Trough 10/22/17 17:31 WBC RBC Hgb Hct MCV MCH MCHC RDW Plt Count MPV Neut % (Auto) Lymph % (Auto) [place] % (Auto) Eos % (Auto) Baso % (Auto) Neut # (Auto) Lymph # (Auto) [place] # (Auto) Eos # (Auto) Baso # (Auto) WBC Differential Differential Comment Sodium Potassium Chloride Carbon Dioxide Anion Gap BUN Creatinine Estimated GFR POC Glucose 171 H Random Glucose Calcium Vancomycin Trough Preliminary micro results at discharge 10/21/17 11:58 Wound Culture - Preliminary Wound - Toe No growth in 48 hours 10/20/17 17:50 Wound Culture - Preliminary Wound - Toe Group B beta Strep Staphylococcus aureus - Impressions ITS Impressions Foot X-Ray 10/18/17 00:00 CONCLUSION: 1. Possible avulsion fracture or soft tissue calcification adjacent to the medial base of the left first distal phalanx. 2. Soft tissue swelling involving the left great toe. 3. 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 4. Plantar and Achilles calcaneus spurs. WBC Scan Nuclear Medicine 10/19/17 06:00 CONCLUSION: 1. The only questionable areas of Ceretec accumulation involves the very medial margin of the first distal phalangeal bone on the left. It only involves the edge of the bone and not the marrow. Discharge Plan - Discharge Disposition Patient Disposition: /Home Health Service - Discharge Condition Condition: Stable - Discharge Order Discharge Orders: Discharge Order (Routine); Ordered 10/23/17 Ordered By: Amor Solorzano - Physicians Team Primary Care Provider: UNKNOWN, Attending Provider: Ludwig Soares Other Providers: Can Dunlap DPM ; Rosalia Yousif MD - Rxs /Orders / Referrals /Forms Prescriptions: Continue amiodarone 200 mg Tablet 200 mg PO DAILY aspirin 81 mg Tablet,Chewable 81 mg PO DAILY atorvastatin 40 mg Tablet 40 mg PO HS carvedilol [Coreg] 12.5 mg Tablet 12.5 mg PO BID cholecalciferol (vitamin D3) [Vitamin D3] 5,000 unit Tablet 5,000 unit PO BID dabigatran etexilate [Pradaxa] 150 mg Capsule 150 mg PO BID empagliflozin [Jardiance] 10 mg Tablet 10 mg PO DAILY furosemide [Lasix] 20 mg Tablet 20 mg PO DAILY glipizide 5 mg Tablet 5 mg PO BID insulin detemir U-100 [Levemir FlexTouch U-100 Insuln] 100 unit/mL (3 mL) Insulin Pen 60 unit SUB-Q BID lisinopril 40 mg Tablet 40 mg PO DAILY magnesium oxide 500 mg Tablet 500 mg PO BID metformin 1,000 mg Tablet 1,000 mg PO BID nitroglycerin [Nitrostat] 0.4 mg Tablet, Sublingual 0.4 mg SUBLINGUAL Q5-15M PRN (Reason: Chest Pain) ranitidine HCl 150 mg Tablet 150 mg PO BID ropinirole 4 mg Tablet Extended Release 24 Hr 4 mg PO HS trazodone 100 mg Tablet 100 mg PO HS Discontinued venlafaxine 75 mg Tablet Extended Release 24hr 150 mg PO DAILY Referrals: Can Dunlap DPM [Physician] - See Instructions (f/u with Podiatry, Dr. Can Dunlap, in 2 weeks. ) Maryan Zurita MD [Physician] - See Instructions (f/u with Dr. Maryan Zurita in 2 weeks, RE: diabetic foot ulcer) Main Knowles MD [Family Provider] - See Instructions UNKNOWN, [Primary Care Provider] - See Instructions - Discharge Instructions Patient Printed Instructions: Linezolid (By mouth), Meal Planning with Diabetes Exchanges (GEN), Acute Wound Care (DC), How To Wash Your Hands (ED), Diabetes and Your Skin (GEN) Additional Instructions: 10/22/17 @ 1136: Per Dr. Yousif and Karrie Sweet, Outpatient PICC line appointment for October 29. Be at registration at 2:00pm. DOES NOT NEED TO BE OFF PRADAXA.
--- NOTE | 2017-10-23 15:26 | P.DCO ---
- Home Health Nursing Order: Medical education, Signs/symptoms of disease process, Medication education-adverse effect, Nursing assessment with vital signs - Certification I have seen patient Georges Schaffer on 10/23/17. My clinical findings support the need for the requested home health care services because: Medication compliance is questionable I certify that my clinical findings support that this patient is homebound because: Need for psychosocial assistance
[2017-10-23] MEDS ORDERED: Linezolid 600 MG Tablet PO SCH (21:00)
== END 2017-10-23 16:58 | disposition home health service (06) ==
LOC: NEPFCDU 16:58 → INTOOBSV 16:58 → N07 10-19 21:59
PROVIDERS: ADMIT Hospitalist; ATTEND Hospitalist